=== PATIENT | female | born 1930 | race African-American/Black ===

== ENCOUNTER 2017-04-29 11:08 | Inpatient (IN) | payer OTHER ==
[~2017-04-29] VITALS: Ht 142.2 cm; Wt 40.7 kg
[2017-04-29] MEDS ORDERED: SODIUM CHLORIDE 0.9% 1L BAG IV* STA (12:09)
[2017-04-29] MEDS ORDERED: ONDANSETRON 4 MG INJ IV STA (12:09)
[2017-04-29] MEDS ORDERED: morphine 2 MG INJ IV STA (12:09)
[2017-04-29] MEDS ORDERED: PIPER-TAZO 3.375 GM IV (PMX) 50 ML IVPB STA (12:09)
--- NOTE | 2017-04-29 12:30 | RADRPT ---
PROCEDURE: Chest x-ray CLINICAL INDICATION: Shortness of breath TECHNIQUE: Chest single view COMPARISON: None FINDINGS: There post sternotomy changes. Percutaneous aortic valve is in place. Heart is normal in size. There is mild atherosclerotic aortic calcification. The pulmonary vessels are normal in caliber. The miranda gs are clear. The costophrenic angles are sharp. The visualized bony thorax is unremarkable. IMPRESSION: No acute cardiopulmonary disease. Mild atherosclerotic aortic calcification Status post CABG and percutaneous aortic valve Osteopenia RPTAT: HH .José Miguel Interiano MD, MD Date Time Electronically viewed and signed by .José Miguel Interiano MD, on 04/29/2017 12:30 .W/
[2017-04-29 12:56] LABS: ABNORMAL IP MESSAGE 1; BASOPHILS % 0.2 % (0.0-2.0); EOSINOPHILS % 0.1 % (0.0-7.0); HEMATOCRIT 27.5 % (37.0-47.0); HEMOGLOBIN 9.4 g/dl (12.0-16.0); LYMPHOCYTES # 0.5 10^3/ul (0.8-2.9); LYMPHOCYTES % 2.6 % (15.0-51.0); MEAN CORPUSCULAR HEMOGLOBIN 34.3 pg (29.0-33.0); MEAN CORPUSCULAR HGB CONC 34.2 g/dl (32.0-37.0); MEAN CORPUSCULAR VOLUME 100.4 fl (82.0-101.0); MEAN PLATELET VOLUME 10.8 fl (7.4-10.4); MONOCYTE # 0.6 10^3/ul (0.3-0.9); MONOCYTES % 3.6 % (0.0-11.0); NEUTROPHIL # 16.5 10^3/ul (1.6-7.5); NEUTROPHILS % 92.5 % (39.0-77.0); PLATELET COUNT 213 10^3/UL (140-415); RED BLOOD COUNT 2.74 10^6/ul (4.20-5.40); RED CELL DISTRIBUTION WIDTH 17.6 % (11.5-14.5); WHITE BLOOD COUNT 17.9 10^3/ul (4.8-10.8)
[2017-04-29 13:16] LABS: INR 1.01; PROTIME 13.4 Sec (11.9-14.9)
[2017-04-29 13:17] LABS: PARTIAL THROMBOPLASTIN TIME 30.8 Sec (25.0-35.0)
[2017-04-29] MEDS ORDERED: VANCOMYCIN 1 GM (PMX) 250 ML IVPB SCH (13:30)
[2017-04-29 13:55] LABS: ADD UMIC YES; UR ASCORBIC ACID NEGATIVE (NEGATIVE); UR BACTERIA FEW /HPF (NONE SEEN); UR BILIRUBIN (Dip) NEGATIVE (NEGATIVE); UR BLOOD (Dip) 2+ mg/dL (NEGATIVE); UR CLARITY SLIGHTLY CLOUDY (CLEAR); UR COLOR YELLOW (YELLOW); UR GLUCOSE (Dip) NEGATIVE (NEGATIVE); UR KETONES (Dip) NEGATIVE (NEGATIVE); UR LEUKOCYTE ESTERASE (Dip) 2+ Leu/ul (NEGATIVE); UR NITRITE (Dip) POSITIVE (NEGATIVE); UR RBC 1 /HPF (0-5); UR SPECIFIC GRAVITY (Dip) 1.009 (1.003-1.030); UR TOTAL PROTEIN (Dip) NEGATIVE (NEGATIVE); UR UROBILINOGEN (Dip) NEGATIVE (NEGATIVE)
[2017-04-29 14:10] LABS: ALBUMIN 3.3 g/dl (3.3-4.9); CREATININE 1.34 mg/dl (0.44-1.00); POTASSIUM 3.6 mmol/L (3.5-5.1); TOTAL PROTEIN 6.6 g/dl (6.1-8.1)
[2017-04-29 14:29] LABS: TROPONIN-I 0.188 ng/ml (0.00-0.12)
[2017-04-29] MEDS ORDERED: BISACODYL (EC) 5 MG TAB PO PRN (15:00)
[2017-04-29] MEDS ORDERED: DOCUSATE SODIUM 100 MG CAP PO PRN (15:00)
[2017-04-29] MEDS ORDERED: MAGNESIUM HYDROXIDE 30ML CUP PO PRN (15:00)
[2017-04-29] MEDS ORDERED: NACL 0.9% 3 ML SYG IV SCH (15:00)
[2017-04-29] MEDS ORDERED: ONDANSETRON 4 MG INJ IV PRN ×2 (15:00)
[2017-04-29] MEDS ORDERED: ACETAMINOPHEN 650 MG SUPP PR PRN (15:00)
[2017-04-29] MEDS ORDERED: ACETAMINOPHEN 325 MG TAB PO PRN (15:00)
[2017-04-29] MEDS ORDERED: ALEN70TA30 PO (15:12)
[2017-04-29] MEDS ORDERED: ACET1TAB40 PO (15:12)
[2017-04-29] MEDS ORDERED: CALC500T91 PO (15:13)
[2017-04-29] MEDS ORDERED: LATA2.5D2 BOTH EYES (15:14)
[2017-04-29] MEDS ORDERED: LEVE750T70 PO (15:14)
[2017-04-29] MEDS ORDERED: LISI2.5T59 PO (15:15)
[2017-04-29] MEDS ORDERED: PANT40TA4 PO (15:16)
[2017-04-29] MEDS ORDERED: METO-335 PO (15:16)
[2017-04-29] MEDS ORDERED: SIMV10TA PO (15:16)
--- NOTE | 2017-04-29 15:17 | ERD ---
ER Documentation Chief Complaint Chief Complaint Sent from for abnormal labs HPI 76-year-old female was brought in by her daughter for having a fever at home. She had surgery on her right femur at an outside hospital almost 2 weeks ago. She called 911 because the patient had a fever and she has discharge paperwork saying that she should go to the emergency room if she has a fever. This is the hospital the ambulance brought him to. She does have some substernal nonradiating chest pain. Denies shortness of breath. Has a history of CABG and artificial cardiac valve. She also complains of generalized crampy abdominal pain. Initially had constipation after her surgery but after she took a laxative she had diarrhea. She still has some diarrhea which is watery. She has not been on any antibiotics throughout her surgery has not had antibiotics that she knows of this year. ROS All systems reviewed and are negative except as per history of present illness. Allergies Allergies: Coded Allergies: phenytoin (Verified Allergy, Intermediate, Rash, 04/29/17) PMhx/Soc History of Surgery: Yes (HIP, CABG, CRANIO, HEART VALVE REPLACEMENT) Hx Neurological Disorder: Yes (SEIZURE) Hx Cardiac Disorders: Yes (HTN) Hx Miscellaneous Medical Probl: Yes (HIGH ROBERTH) Hx Alcohol Use: No Hx Substance Use: No Hx Tobacco Use: No Smoking Status: Never smoker Physical Exam Vitals Vital Signs Date Time Temp Pulse Resp B/P Pulse Ox O2 Delivery O2 Flow Rate FiO2 04/29/17 13:11 Nasal Cannula 2 04/29/17 11:11 101.2 121 20 117/50 94 Physical Exam Const: [] Mild distress, appears uncomfortable Head: Atraumatic Eyes: Normal Conjunctiva ENT: Normal External Ears, Nose and Mouth. Neck: Full range of motion..~ No meningismus. Resp: Clear to auscultation bilaterally Cardio: Regular tachycardia no murmurs Abd: Soft, I will generalized abdominal tenderness without guarding or rebound, non distended. Normal bowel sounds Skin: No petechiae or rashes Back: No midline or flank tenderness Ext: No cyanosis, or edema, well-healed incision sites, distal pulses intact all 4 extremities Neur: Awake and alert and oriented 3, no focal deficits Psych: Normal Mood and Affect Result Diagram: 04/29/17 1240 04/29/17 1330 Results 24 hrs Laboratory Tests Test 04/29/17 12:40 04/29/17 13:07 04/29/17 13:30 White Blood Count 17.910^3/ul Red Blood Count 2.7410^6/ul Hemoglobin 9.4g/dl Hematocrit 27.5% Mean Corpuscular Volume 100.4fl Mean Corpuscular Hemoglobin 34.3pg Mean Corpuscular Hemoglobin Concent 34.2g/dl Red Cell Distribution Width 17.6% Platelet Count 84087^3/UL Mean Platelet Volume 10.8fl Neutrophils % 92.5% Lymphocytes % 2.6% Monocytes % 3.6% Eosinophils % 0.1% Basophils % 0.2% Nucleated Red Blood Cells % 0.0/100WBC Neutrophils # 16.510^3/ul Lymphocytes # 0.510^3/ul Monocytes # 0.610^3/ul Eosinophils # 0.010^3/ul Basophils # 0.010^3/ul Nucleated Red Blood Cells # 0.010^3/ul Prothrombin Time 13.4Sec Prothrombin Time Ratio 1.0 INR International Normalized Ratio 1.01 Activated Partial Thromboplast Time 30.8Sec Urine Color YELLOW Urine Clarity SLIGHTLY CLOUDY Urine pH 5.0 Urine Specific [place] 1.009 Urine Ketones NEGATIVEmg/dL Urine Nitrite POSITIVEmg/dL Urine Bilirubin NEGATIVEmg/dL Urine Urobilinogen NEGATIVEmg/dL Urine Leukocyte Esterase 2+Angelina/ul Urine Microscopic RBC 1/HPF Urine Microscopic WBC 95/HPF Urine Bacteria FEW/HPF Urine Hemoglobin 2+mg/dL Urine Glucose NEGATIVEmg/dL Urine Total Protein NEGATIVEmg/dl Sodium Level 131mmol/L Potassium Level 3.6mmol/L Chloride Level 97mmol/L Carbon Dioxide Level 26mmol/L Anion Gap 12 Blood Urea Nitrogen 26mg/dl Creatinine 1.34mg/dl Glucose Level 109mg/dl Lactic Acid Level 1.6mmol/L Calcium Level 9.0mg/dl Total Bilirubin 1.0mg/dl Direct Bilirubin 0.00mg/dl Indirect Bilirubin 1.0mg/dl Aspartate Amino Transf (AST/SGOT) 30IU/L Alanine Aminotransferase (ALT/SGPT) 33IU/L Alkaline Phosphatase 115IU/L Troponin I 0.188ng/ml Total Protein 6.6g/dl Albumin 3.3g/dl Globulin 3.30g/dl Albumin/Globulin Ratio 1.00 Current Medications Medications (Trade) Dose Ordered Sig/Ronald Route PRN Reason Start Time Stop Time Status Last Admin Dose Admin Sodium Chloride 1710 ml 1,710 ml BOLUS OVER 2 HOURS STAT IV* 04/29/17 12:09 04/29/17 12:12 DC 04/29/17 13:31 Piperacillin Sod/ Tazobactam Sod (Zosyn 3.375gm/ 50 ml (Pmx)) 50 ml @ 100 mls/hr ONCE STAT IVPB 04/29/17 12:09 04/29/17 12:38 DC 04/29/17 13:31 Ondansetron HCl (Zofran Inj) 4 mg ONCE STAT IV 04/29/17 12:09 04/29/17 12:12 DC 04/29/17 13:30 Morphine Sulfate 2 mg 2 mg ONCE STAT IV 04/29/17 12:09 04/29/17 12:12 DC 04/29/17 13:31 Vancomycin HCl (Vancocin) 250 ml @ 125 mls/hr ONCE IVPB 04/29/17 13:30 04/29/17 15:29 Ondansetron HCl (Zofran Inj) 4 mg ER BRIDGE PRN IV NAUSEA AND/OR VOMITING 04/29/17 15:00 04/30/17 14:59 Acetaminophen 650 mg 650 mg ER BRIDGE PRN PO MILD PAIN/FEVER 04/29/17 15:00 04/30/17 14:59 Sodium Chloride (NS) 1,000 ml @ 50 mls/hr Q20H IV 04/29/17 14:59 UNV IV Flush (NS 3 ml) 3 ml PER PROTOCOL IV 04/29/17 15:00 UNV Ondansetron HCl (Zofran Inj) 4 mg Q6H PRN IV NAUSEA AND/OR VOMITING 04/29/17 15:00 UNV Acetaminophen (Tylenol Tab) 650 mg Q6H PRN PO PAIN LEVEL 1-3 OR FEVER 04/29/17 15:00 UNV Acetaminophen (Tylenol Supp) 650 mg Q6H PRN [place] PAIN LEVEL 1-3 OR FEVER 04/29/17 15:00 UNV Docusate Sodium (Colace) 100 mg Q12H PRN PO CONSTIPATION 04/29/17 15:00 UNV Magnesium Hydroxide (Milk Of Mag) 30 ml DAILY PRN PO CONSTIPATION 04/29/17 15:00 UNV Bisacodyl (Dulcolax) 5 mg DAILY PRN PO CONSTIPATION 04/29/17 15:00 UNV Pantoprazole 40 mg 40 mg DAILY@06 IV 04/30/17 06:00 UNV Ceftriaxone Sodium (Rocephin) 50 ml @ 100 mls/hr DAILY IVPB 04/30/17 09:00 UNV Procedures/MDM UTI with sepsis as a postop infection. She does have elevated troponin as well with a history of CABG as well as valve replacement of unknown valve. No ischemic EKG changes. She will need very close monitoring as this is a sniffing infection causing significant tachycardia and strain on the heart. She was given vancomycin and Zosyn for healthcare acquired infection. She given 30 cc/kg IV fluid. Also given Tylenol for fever. She remained persistently tachycardic. . Chest pain diminished without treatment other than 325 mg aspirin. She also given Zofran and Toradol which helped the headache and body aches. Feeling improved condition in the emergency room. She is being admitted to Dr. Cdoy, who came and saw the patient in the emergency room. Being admitted to telemetry for close monitoring. EKG interpretation: Sinus tachycardia rate of 109, normal axis, no ST or T-wave changes concerning for acute ischemia, normal intervals. environmental monitoring technician interpretation: Sinus tachycardia without other arrhythmia Chest x-ray interpretation: I see no acute process, I see no infiltrates, no pulmonary edema, no pneumothorax, no fractures Critical care time 34 minutes: This includes treatment of sepsis with chest pain in a patient with multiple cardiac risk factors, treatment of unstable vital signs, careful fluid administration, multiple visits patient's bedside to reassess status, close monitoring, review of chart, discussion with patient and admitting doctor. This does not include any billable procedures Departure Diagnosis: Primary Impression: Sepsis secondary to UTI Additional Impressions: Chest pain Renal insufficiency Elevated troponin Condition: Serious VALDEZ DOUGLAS DO Apr 29, 2017 15:17
--- NOTE | 2017-04-29 15:27 | QN ---
Documentation Comment [id number] IVAN LANDAVERDE MD Apr 29, 2017 15:27
[2017-04-29] MEDS ORDERED: ACETAMINOPHEN 325 MG TAB PO ONE (15:30)
[2017-04-29] MEDS ORDERED: SOD CHLORIDE 0.9% 1,000 ML IV ONE (15:30)
--- NOTE | 2017-04-29 16:35 | RADRPT ---
Echocardiogram Report Patient Name: MARILOU MORRISON Gender: Female Date: 1930 Study Date: 29-Apr-2017 Mannequin Decorator: Lisa [facility] Location: [facility] Ref. Physician: IVAN LANDAVERDE Quality: Adequate Procedures: Transthoracic echocardiogram with complete 2D, M-Mode, and doppler examination. Indications: CAD. 2D/M Mode Doppler Measurement Value Normal Ranges Measurement Value Normal Ranges LVIDd 2D 3.3 3.5 - 5.6 cm ANTONELLA Vmax 1.0 cm2 LVIDs 2D 2.3 2.1 - 4.1 cm ANTONELLA VTI 1.0 cm2 FS 2D 31.4 % AV Mean Miles 1.6 m/sec LVPWd 2D 1.3 0.6 - 1.1 cm AV Mean PG 12.0 mmHg IVSd 2D 1.2 0.6 - 1.1 cm AV Peak Miles 2.3 m/sec IVS/LVPW 2D 1.0 AV Peak PG 20.0 mmHg AoR Diam 2D 2.1 2.0 - 3.7 cm AV VTI 42.0 cm LA/Ao 2D 2 0 - 1 LVOT Mean Miles 0.6 m/sec EDV 2D 37.3 cm3 LVOT Mean PG 2.0 mmHg ESV 2D 12.0 cm3 LVOT Peak Miles 1.0 m/sec LA Dimen 2D 3.4 2.3 - 4.0 cm LVOT Peak PG 4.0 mmHg LVOT Diam 1.7 cm LVOT VTI 19.2 cm LVOT Area 2.3 cm2 MV E Peak Miles 1.3 m/sec MV A Peak Miles 1.4 m/sec MV E/A 1.0 MV Decel Time 180 msec MV E/A 1.0 TR Peak Miles 4.0 m/sec TR Peak PG 64.0 mmHg RVSP 67.0 mmHg Findings Left Ventricle: Normal left ventricular systolic function. Normal left ventricular cavity size. Mild concentric left ventricular hypertrophy. Ejection fraction is visually estimated at 65 %. Tissue Doppler/Mitral Doppler indices are consistent with pseudonormalization with mildly elevated left atrial pressure (Stage II diastolic dysfunction). Right Ventricle: Normal right ventricular size. Normal right ventricular systolic function. Left Atrium: There is moderate enlargement of left atrium. Right Atrium: There is mild enlargement of right atrium. Mitral Valve: Mild mitral leaflet calcification. Mild mitral annular calcification. Mild mitral valve regurgitation. Aortic Valve: Aortic Valve Bio Prosthesis is well seated. Aortic valve Max velocity 2.26 m/sec. Max PG 20.00 mmHg. Mean PG 12.00 mmHg. Tricuspid Valve: Normal appearance of the tricuspid valve. Estimated peak PA systolic pressure 51 mmHg. There is moderate tricuspid regurgitation. Pulmonic Valve: Pulmonic valve not well visualized. There is trace pulmonic regurgitation. Pericardium: Normal pericardium with no significant pericardial effusion. Aorta: Normal aortic root. IVC: Normal size and normal respiratory collapse consistent with normal right atrial pressure. Conclusions 1.The left ventricle is normal in size and systolic function. 2.Estimated left ventricular ejection fraction of 65%. 3.Mild concentric left ventricular hypertrophy. Grade 2 diastolic dysfunction. 4.Aortic valve bioprosthesis with normal function. 5.Pulmonary hypertension with estimated RVSP of 51 mmHg. Electronically Signed By: Rocco Tiwari 29-Apr-2017 16:34:23 -0800 Patient Name: MARILOU MORRISON Study Date: 29-Apr-2017 [id number]
--- NOTE | 2017-04-29 17:26 | HP ---
DATE OF ADMISSION: 04/29/2017 HISTORY OF PRESENT ILLNESS: The patient is an elderly female with history of TAVR, history of seizure disorder, history of femur fracture and repair, recently discharged from _[facility] Hospital, presented with temperature 101.2, pulse 121, blood pressure 117/50, and respirations 20. The patient has been admitted for systemic inflammatory response syndrome, possible UTI. LABORATORY DATA: The patient's sodium 131, potassium 3.6. Troponin 0.188. Patient denies any chest pain, palpitations. Leuk esterase is positive in the urine. WBC 17.9, hematocrit 27.4, platelet count of 213. Chest x-ray done shows no acute cardiopulmonary disease, mild atherosclerotic aortic calcification, status post CABG and percutaneous aortic valve and osteopenia. PAST MEDICAL HISTORY: Positive for TAVR, history of seizure disorder, history of femur surgery, history of femur fracture repair, history of GI bleed and clipping in July of this year. ALLERGY HISTORY: TO DILANTIN. SOCIAL HISTORY: Negative. MEDICATIONS AT HOME: Not available. REVIEW OF SYSTEMS: HEENT: Unremarkable. RESPIRATORY: Unremarkable. CARDIOVASCULAR: neg. ABDOMEN: dyspepsia+. GENITOURINARY: Some dysuria. EXTREMITIES: Unremarkable. MUSCULOSKELETAL: Unremarkable. PHYSICAL EXAMINATION: GENERAL: The patient is awake, alert, not in any acute respiratory distress. VITAL SIGNS: Stable. HEAD: Atraumatic, normocephalic. Pupils equal, reactive to light. NECK: Supple. No JVD. LUNGS: Clear to auscultation and percussion. ABDOMEN: Soft, nontender. Bowel sounds present. No palpable mass. EXTREMITIES: No cyanosis, clubbing, or edema. CENTRAL NERVOUS SYSTEM: The patient is awake, alert. No focal deficit. SKIN: The patient has a CABG scar noted in the chest. IMPRESSION: 1. Systemic inflammatory response syndrome. The patient has a urinary tract infection, a positive troponin, hyponatremia, acute kidney injury, with possible underlying chronic kidney disease, leukocytosis, history of gastrointestinal bleed, history of coronary artery bypass graft, history of seizure disorder. PLAN: At this point is to give this patient cardiac diet. Troponin will be sent. The patient cannot take aspirin because of history of GI bleed. Cardiology consultation with Dr. Toro has been obtained. IV fluid, antibiotic, PPI, SCDs to the legs. Orders were done. Dictated By: IVAN SMITH/REYNALDO Conf#: [id number] DID#: [id number] MTDD
[2017-04-29] MEDS: CEFTRIAXONE 1 GM/50 ML (PMX) 50 ML IVPB SCH (17:47)
[2017-04-29] MEDS: SOD CHLORIDE 0.9% 1,000 ML IV SCH (18:37)
[2017-04-29 19:47] LABS: CK-MB 0.74 ng/ml (0.0-2.4)
[2017-04-29 19:48] LABS: TROPONIN-I 0.242 ng/ml (0.00-0.12)
[2017-04-29 20:56] VITALS: TEMP 98.6
[2017-04-29 21:15] VITALS: PULSE 87
[2017-04-29 22:30] VITALS: BMI 20.1
[2017-04-29 23:35] LABS: CK-MB 1.38 ng/ml (0.0-2.4)
[2017-04-29 23:41] LABS: TROPONIN-I 0.28 ng/ml (0.00-0.12)
[2017-04-30] VITALS (10 sets, daily range): BP systolic 81–114; BP diastolic 50–56; PULSE 89–99; RESP 17–20; Ht 142.2 cm; Wt 40.7 kg
[2017-04-30] MEDS: LEVETIRACETAM IV 750 MG in DEXTROSE 5% 100 ML IVPB SCH ×3 (01:29→22:13)
[2017-04-30] MEDS: FAMOTIDINE 20 MG INJ IV SCH (08:31)
[2017-04-30] MEDS: SOD CHLORIDE 0.9% 1,000 ML IV SCH (10:44)
[2017-04-30] MEDS: CLOPIDOGREL 75 MG TAB PO SCH (10:51)
[2017-04-30] MEDS: ISOSORBIDE MONONITRATE(SR)30 MG TAB PO SCH (10:52)
[2017-04-30] MEDS ORDERED: SOD CHLORIDE 0.9% 500 ML IV ONE (11:00)
--- NOTE | 2017-04-30 12:00 | CONS ---
DATE OF ADMISSION: 04/29/2017 DATE OF CONSULTATION: 04/30/2017 Thank you, Dr. Landaverde, for cardiology consultation. REASON FOR CONSULTATION: Chest pain. HISTORY OF PRESENT ILLNESS: Patient is an 86-year-old female who comes in with low blood pressure. She also complains of chest pain localized to the epigastric region and dizziness. Denies any shor tness of breath, palpitations, or syncope. She has a history of having a TAVR which was done in at [facility] and bypass surgery done in 2007. She denies any nausea or vomiting, but complains of diar suad, no abdominal pain. She had a temperature of 101.2. PAST MEDICAL HISTORY: 1. Significant for coronary artery disease, status post bypass surgery in 2007 TAVR. 2. TAVR 2015. 3. Hypertension. 4. Dyslipidemia. 5. Seizures. 6. GERD. 7. Anemia. 8. History of GI bleed. PAST SURGICAL HISTORY: Significant for ORIF of the femur. SOCIAL HISTORY: No smoking, alcohol or recreational drug. ALLERGIES: DILANTIN. CURRENT MEDICATIONS: 1. Keppra. 2. Pepcid. 3. Ceftriaxone. REVIEW OF SYSTEMS: Unremarkable except that mentioned in the HPI. PHYSICAL EXAMINATION: VITAL SIGNS: Temperature is 99.6, heart rate of 98, blood pressure 88/52 mmHg, breathing at 17. GENERAL: The patient awake, alert, oriented, no apparent distress. NECK: No JVD or carotid bruit. CARDIOVASCULAR: Regular rate and rhythm, no murmur, rub or gallop. LUNGS: Clear to auscultation. ABDOMEN: Soft. Bowel sounds are present. There is no organomegaly. EXTREMITIES: No pedal edema. Review of 12 lead EKG shows sinus tachycardia with ventricular rate of 109 beats per minute, normal MD, normal QRS and normal QT interval with no acute ST-T wave changes. Chest x-ray shows no congestion or infiltrate with a percutaneous aortic valve in position. LABORATORY DATA: WBC 17.9, hemoglobin 9.5, hematocrit 27.4 with a platelet of 213. Troponin first set is 0.18, second set 0.2, third was 0.28. Sodium 131, potassium 3.6, chloride 97, CO2 26, BUN 26 , creatinine 1.34. ASSESSMENT AND PLAN: This is an 86-year-old female with: 1. Chest pain. 2. Acute coronary syndrome. 3. Coronary artery disease status post bypass surgery. 4. Aortic stenosis, status post TAVR. 5. Hypertension. 6. Dyslipidemia. 7. Anemia. 8. GERD. 9. Hypertension. Review of 12 lead EKG shows sinus tachycardia with no acute ST-T wave changes. She has elevated tro ponins. RECOMMENDATIONS: 1. Bolus of 500 mL of normal saline. 2. Started on Imdur 3. Echocardiogram to assess for vegetation. 4. Blood culture, urine culture. 5. BNP, TSH, ESR. 6. Hold all antihypertensives. 7. Continue empiric antibiotics. 8. Started on Protonix by mouth two times a day. 9. Further recommendations after review of the echocardiogram. Dictated By: MIRIAM BRUCE MD SR/NTS Conf#: [id number] DID#: [id number] CC: IVAN LANDAVERDE MD;*EndCC*
[2017-04-30 12:38] LABS: THYROID STIMULATING HORMONE 0.19 MIU/L (0.465-4.680)
--- NOTE | 2017-04-30 13:52 | PN ---
Date/Time of Note Date/Time of Note DATE: 04/30/17 TIME: 13:49 Assessment/Plan VTE Prophylaxis VTE Prophylaxis Intervention: SCD's Lines/Catheters IV C[facility]ter Type ([facility] Peripheral IV Urinary Cath still in place: No Assessment/Plan Chief Complaint/Hosp Course 1. Systemic inflammatory response syndrome. 2. S/p right hip arthroplasty at [facility] 3. urinary tract infection, 4.Positive troponin, 5. Hyponatremia, 6. acute kidney injury, with possible underlying chronic kidney disease, 7. history of gastrointestinal bleed 8. history of coronary artery bypass graft 9. history of seizure disorder. 10. Status post percutaneous aortic valve placement 11.Anemia 12. CHF Problems: Subjective 24 Hr Interval Summary Constitutional: chills Skin: bruising Exam/Review of Systems Vital Signs Vitals Vital Signs Date Time Temp Pulse Resp B/P Pulse Ox O2 Delivery O2 Flow Rate FiO2 04/30/17 12:00 98 04/30/17 11:44 98.3 19 92/53 100 04/30/17 00:00 Nasal Cannula 2.0 Intake and Output 04/29/17 04/29/17 04/30/17 15:00 23:00 07:00 Intake Total 50 ml 300 ml Balance 50 ml 300 ml Exam Constitutional: alert, oriented Neck: supple Cardiovascular: other (tachycardia), regular rate and rhythm Musculoskeletal: swelling (right hip with steril strips) Neurological: CONTINUING EDUCATION SPECIALIST II-XII intact Results Result Diagram: 04/29/17 1240 04/29/17 1330 Results 24 hrs Laboratory Tests Test 04/29/17 19:00 04/29/17 22:51 04/30/17 11:29 Lactic Acid Level 1.6 1.5 Creatine Kinase 91 226 H Creatine Kinase Index 0.8 0.6 Creatinine Kinase MB (Mass) 0.74 1.38 Troponin I 0.242 *H 0.280 *H Erythrocyte Sedimentation Rate 88 H B-Type Natriuretic Peptide 7290 H Thyroid Stimulating Hormone (TSH) 0.190 L Medications Medications Current Medications Sodium Chloride (NS) 1,000 ml @ 50 mls/hr Q20H IV Last administered on t 10:44; Admin Dose 50 MLS/HR; Start 04/29/17 at 14:59 Ondansetron HCl (Zofran Inj) 4 mg Q6H PRN IV NAUSEA AND/OR VOMITING; Start 04/29/17 at 15:00 Acetaminophen (Tylenol Tab) 650 mg Q6H PRN PO PAIN LEVEL 1-3 OR FEVER; Start 04/29/17 at 15:00 Acetaminophen (Tylenol Supp) 650 mg Q6H PRN [place] PAIN LEVEL 1-3 OR FEVER; Start 04/29/17 at 15:00 Docusate Sodium (Colace) 100 mg Q12H PRN PO CONSTIPATION; Start 04/29/17 at 15: 00 Magnesium Hydroxide (Milk Of Mag) 30 ml DAILY PRN PO CONSTIPATION; Start at 15:00 Bisacodyl (Dulcolax) 5 mg DAILY PRN PO CONSTIPATION; Start 04/29/17 at 15:00 Famotidine 20 mg 20 mg Q24H IV Last administered on 04/30/17 08:31; Admin Dose 20 MG; Start 04/30/17 at 09:00 Ceftriaxone Sodium 50 ml @ 100 mls/hr Q24H IVPB Last administered on 17:47; Admin Dose 100 MLS/HR; Start 04/29/17 at 16:00 Levetiracetam/ Dextrose (Keppra Iv/D5W) 107.5 ml @ 430 mls/hr Q12 IVPB Last administered on 04/30/17 10:43; Admin Dose 430 MLS/HR; Start 04/29/17 at 21:00 Isosorbide Mononitrate (Imdur) 30 mg DAILY PO Last administered on 04/30/17 10 :52; Admin Dose 30 MG; Start 04/30/17 at 11:00 Clopidogrel Bisulfate (plaVIX) 75 mg DAILY PO Last administered on 04/30/17 10 :51; Admin Dose 75 MG; Start 04/30/17 at 11:00 TRAVIS SCHWARZ Apr 30, 2017 13:52
[2017-04-30] MEDS: CEFTRIAXONE 1 GM/50 ML (PMX) 50 ML IVPB SCH (16:40)
[2017-04-30] MEDS: ACETAMINOPHEN 325 MG TAB PO PRN (21:14)
[2017-05-01] VITALS (12 sets, daily range): BP systolic 97–133; BP diastolic 52–74; PULSE 67–101; RESP 16–20
[2017-05-01 06:40] LABS: ABNORMAL IP MESSAGE 1; MEAN CORPUSCULAR HEMOGLOBIN 33.7 pg (29.0-33.0); MEAN CORPUSCULAR HGB CONC 32.4 g/dl (32.0-37.0); MEAN PLATELET VOLUME 10.1 fl (7.4-10.4); PLATELET COUNT 161 10^3/UL (140-415); RED BLOOD COUNT 2.02 10^6/ul (4.20-5.40); RED CELL DISTRIBUTION WIDTH 17.3 % (11.5-14.5); WHITE BLOOD COUNT 9.4 10^3/ul (4.8-10.8)
[2017-05-01 06:51] LABS: HEMOGLOBIN 6.8 g/dl (12.0-16.0); POSITIVE DIFF @See below
[2017-05-01] MEDS: SOD CHLORIDE 0.9% 1,000 ML IV SCH (06:59)
[2017-05-01 07:15] LABS: CALCIUM 7.8 mg/dl (8.4-10.2); POTASSIUM 3.4 mmol/L (3.5-5.1)
[2017-05-01] MEDS: ISOSORBIDE MONONITRATE(SR)30 MG TAB PO SCH (08:44)
[2017-05-01] MEDS: FAMOTIDINE 20 MG INJ IV SCH (08:44)
[2017-05-01] MEDS: CLOPIDOGREL 75 MG TAB PO SCH (08:44)
[2017-05-01 09:33] LABS: HEMATOCRIT 21.9 % (37.0-47.0); HEMOGLOBIN 7.1 g/dl (12.0-16.0); MEAN CORPUSCULAR HEMOGLOBIN 33.6 pg (29.0-33.0); MEAN CORPUSCULAR HGB CONC 32.4 g/dl (32.0-37.0); MEAN CORPUSCULAR VOLUME 103.8 fl (82.0-101.0); MEAN PLATELET VOLUME 9.9 fl (7.4-10.4); PLATELET COUNT 160 10^3/UL (140-415); RED BLOOD COUNT 2.11 10^6/ul (4.20-5.40); RED CELL DISTRIBUTION WIDTH 17.4 % (11.5-14.5); WHITE BLOOD COUNT 8.9 10^3/ul (4.8-10.8)
[2017-05-01 09:36] LABS: POSITIVE DIFF @See below
[2017-05-01 10:01] LABS: ANISOCYTOSIS 1+ (0-0); BASOPHILS % (M) 2 % (0-2); EOSINOPHILS % (M) 1 % (0-7); MONOCYTES % (M) 11 % (0-11); PLATELET ESTIMATE NORMAL; POLYCHROMASIA 2+ (0-0)
[2017-05-01] MEDS: LEVETIRACETAM IV 750 MG in DEXTROSE 5% 100 ML IVPB SCH ×2 (10:11→20:28)
--- NOTE | 2017-05-01 10:12 | CONS ---
Date/Time of Note Date/Time of Note DATE: 05/01/17 TIME: 10:07 Assessment/Plan Assessment/Plan Additional Assessment/Plan ASSESSMENT AND PLAN: This is an 86-year-old female with: 1. Chest pain. 2. Acute coronary syndrome. 3. Coronary artery disease status post bypass surgery. 4. Aortic stenosis, status post TAVR. 5. Hypertension. 6. Dyslipidemia. 7. Anemia. 8. GERD. 9. Hypertension. 10 GNR Bacteremia 11. GNR Urosepsis Review of 12 lead EKG shows sinus tachycardia with no acute ST-T wave changes. She has elevated troponins. Echo is pending to r/o vegetation and assess for segmental wall motion abnormality RECOMMENDATIONS: Continue Imdur Continue Plavix Hold all antihypertensives. Continue empiric antibiotics. Continue Protonix Awaiting echo Consultation Date/Type/Reason Admit Date/Time Apr 29, 2017 at 14:49 Initial Consult Date Exam/Review of Systems Vital Signs Vitals Vital Signs Date Time Temp Pulse Resp B/P Pulse Ox O2 Delivery O2 Flow Rate FiO2 05/01/17 08:09 98.2 91 18 103/57 100 04/30/17 20:00 Nasal Cannula 2.0 Intake and Output 04/30/17 04/30/17 05/01/17 15:00 23:00 07:00 Intake Total 1207.5 ml 800 ml Balance 1207.5 ml 800 ml Exam Constitutional: alert, oriented Head: atraumatic, normocephalic Neck: non-tender, supple Respiratory: clear to auscultation Cardiovascular: regular rate and rhythm (no m/r/g) Gastrointestinal: nl liver, spleen, non-tender, soft Extremities: normal pulses Results Result Diagram: 05/01/17 0920 05/01/17 0611 Results 24 hrs Laboratory Tests Test 04/30/17 11:29 05/01/17 06:11 05/01/17 09:20 Erythrocyte Sedimentation Rate 88 H B-Type Natriuretic Peptide 7290 H Thyroid Stimulating Hormone (TSH) 0.190 L White Blood Count 9.4 # 8.9 Red Blood Count 2.02 #L 2.11 L Hemoglobin 6.8 #*L 7.1 L Hematocrit 21.0 #L 21.9 L Mean Corpuscular Volume 104.0 H 103.8 H Mean Corpuscular Hemoglobin 33.7 H 33.6 H Mean Corpuscular Hemoglobin Concent 32.4 32.4 Red Cell Distribution Width 17.3 H 17.4 H Platelet Count 161 # 160 Mean Platelet Volume 10.1 9.9 Neutrophils % Segmented Neutrophils % (Manual) 67 Band Neutrophils % (Manual) 8 H Lymphocytes % Lymphocytes % (Manual) 11 L Monocytes % Monocytes % (Manual) 11 Eosinophils % Eosinophils % (Manual) 1 Basophils % Basophils % (Manual) 2 Nucleated Red Blood Cells % 0.0 0.0 Neutrophils # Neutrophils # (Manual) 6.4 Band Neutrophils # 0.7 H Absolute Lymphocytes (Manual) 1.0 Lymphocytes # Monocytes # Absolute Monocytes (Manual) 1.0 H Eosinophils # Basophils # Basophils # (Manual) 0.1 H Nucleated Red Blood Cells # Platelet Estimate NORMAL Polychromasia 2+ Anisocytosis 1+ Macrocytosis 1+ Sodium Level 141 Potassium Level 3.4 L Chloride Level 111 H Carbon Dioxide Level 25 Anion Gap 8 Blood Urea Nitrogen 16 # Creatinine 1.00 Glucose Level 107 Calcium Level 7.8 L Medications Medications Current Medications Sodium Chloride (NS) 1,000 ml @ 50 mls/hr Q20H IV Last administered on 10:44; Admin Dose 50 MLS/HR; Start 04/29/17 at 14:59 Ondansetron HCl (Zofran Inj) 4 mg Q6H PRN IV NAUSEA AND/OR VOMITING; Start 04/29/17 at 15:00 Acetaminophen (Tylenol Tab) 650 mg Q6H PRN PO PAIN LEVEL 1-3 OR FEVER Last administered on 04/30/17 21:14; Admin Dose 650 MG; Start 04/29/17 at 15:00 Acetaminophen (Tylenol Supp) 650 mg Q6H PRN [place] PAIN LEVEL 1-3 OR FEVER; Start 04/29/17 at 15:00 Docusate Sodium (Colace) 100 mg Q12H PRN PO CONSTIPATION; Start 04/29/17 at 15: 00 Magnesium Hydroxide (Milk Of Mag) 30 ml DAILY PRN PO CONSTIPATION; Start at 15:00 Bisacodyl (Dulcolax) 5 mg DAILY PRN PO CONSTIPATION; Start 04/29/17 at 15:00 Famotidine 20 mg 20 mg Q24H IV Last administered on 05/01/17 08:44; Admin Dose 20 MG; Start 04/30/17 at 09:00 Ceftriaxone Sodium 50 ml @ 100 mls/hr Q24H IVPB Last administered on 16:40; Admin Dose 100 MLS/HR; Start 04/29/17 at 16:00 Levetiracetam/ Dextrose (Keppra Iv/D5W) 107.5 ml @ 430 mls/hr Q12 IVPB Last administered on 04/30/17 22:13; Admin Dose 430 MLS/HR; Start 04/29/17 at 21:00 Isosorbide Mononitrate (Imdur) 30 mg DAILY PO Last administered on 05/01/17 08:44; Admin Dose 30 MG; Start 04/30/17 at 11:00 Clopidogrel Bisulfate (plaVIX) 75 mg DAILY PO Last administered on 05/01/17 08:44; Admin Dose 75 MG; Start 04/30/17 at 11:00 MIRIAM BRUCE M.D. May 01, 2017 10:12
[2017-05-01 10:25] LABS: ANISOCYTOSIS 1+ (0-0); EOSINOPHILS % (M) 3 % (0-7); MONOCYTES % (M) 6 % (0-11); PLATELET ESTIMATE NORMAL; POLYCHROMASIA 3+ (0-0)
[2017-05-01] MEDS ORDERED: CALCIUM CARBONATE 500 MG CHEW TAB PO PRN (14:30)
[2017-05-01] MEDS ORDERED: POTASSIUM CHLORIDE 20 MEQ POWDER FOR ORAL SOLN PO ONE (14:30)
--- NOTE | 2017-05-01 14:34 | PN ---
Date/Time of Note Date/Time of Note DATE: 05/01/17 TIME: 14:32 Assessment/Plan VTE Prophylaxis VTE Prophylaxis Intervention: SCD's Lines/Catheters IV [facility] Peripheral IV Urinary Cath still in place: No Assessment/Plan Chief Complaint/Hosp Course 1. Systemic inflammatory response syndrome, better. 2. S/p right hip arthroplasty at [facility] 3. urinary tract infection, 4.Positive troponin, 5. Hyponatremia, 6. acute kidney injury, with possible underlying chronic kidney disease, 7. history of gastrointestinal bleed 8. history of coronary artery bypass graft 9. history of seizure disorder. 10. Status post percutaneous aortic valve placement 11. Anemia 12. CHF Problems: Assessment/Plan 1. Stop Iv fluids 2. Start Pt tomorrow Subjective 24 Hr Interval Summary Constitutional: improved, no complaints Musculoskeletal: bone/joint pain (right kneee) Exam/Review of Systems Vital Signs Vitals Vital Signs Date Time Temp Pulse Resp B/P Pulse Ox O2 Delivery O2 Flow Rate FiO2 05/01/17 12:06 98.0 100 17 107/61 99 04/30/17 20:00 Nasal Cannula 2.0 Intake and Output 04/30/17 04/30/17 05/01/17 14:59 22:59 06:59 Intake Total 1100 ml 907.5 ml Balance 1100 ml 907.5 ml Exam Constitutional: alert, oriented Respiratory: diminished breath sounds Cardiovascular: regular rate and rhythm Gastrointestinal: soft Neurological: [employer] ADMINISTRATOR II-XII intact Results Result Diagram: 05/01/17 0920 05/01/17 0611 Results 24 hrs Laboratory Tests Test 05/01/17 06:11 05/01/17 09:20 05/01/17 12:07 White Blood Count 9.4 # 8.9 Red Blood Count 2.02 #L 2.11 L Hemoglobin 6.8 #*L 7.1 L Hematocrit 21.0 #L 21.9 L Mean Corpuscular Volume 104.0 H 103.8 H Mean Corpuscular Hemoglobin 33.7 H 33.6 H Mean Corpuscular Hemoglobin Concent 32.4 32.4 Red Cell Distribution Width 17.3 H 17.4 H Platelet Count 161 # 160 Mean Platelet Volume 10.1 9.9 Neutrophils % Segmented Neutrophils % (Manual) 67 77 Band Neutrophils % (Manual) 8 H 5 H Lymphocytes % Lymphocytes % (Manual) 11 L 9 L Monocytes % Monocytes % (Manual) 11 6 Eosinophils % Eosinophils % (Manual) 1 3 Basophils % Basophils % (Manual) 2 Nucleated Red Blood Cells % 0.0 0.0 Neutrophils # Neutrophils # (Manual) 6.4 6.9 Band Neutrophils # 0.7 H 0.4 Absolute Lymphocytes (Manual) 1.0 0.8 Lymphocytes # Monocytes # Absolute Monocytes (Manual) 1.0 H 0.5 Eosinophils # Basophils # Basophils # (Manual) 0.1 H Nucleated Red Blood Cells # Platelet Estimate NORMAL NORMAL Polychromasia 2+ 3+ Anisocytosis 1+ 1+ Macrocytosis 1+ 1+ Sodium Level 141 Potassium Level 3.4 L Chloride Level 111 H Carbon Dioxide Level 25 Anion Gap 8 Blood Urea Nitrogen 16 # Creatinine 1.00 Glucose Level 107 Calcium Level 7.8 L Troponin I 0.067 Medications Medications Current Medications Sodium Chloride (NS) 1,000 ml @ 50 mls/hr Q20H IV Last administered on 10:44; Admin Dose 50 MLS/HR; Start 04/29/17 at 14:59 Ondansetron HCl (Zofran Inj) 4 mg Q6H PRN IV NAUSEA AND/OR VOMITING; Start 04/29/17 at 15:00 Acetaminophen (Tylenol Tab) 650 mg Q6H PRN PO PAIN LEVEL 1-3 OR FEVER Last administered on 04/30/17 21:14; Admin Dose 650 MG; Start 04/29/17 at 15:00 Acetaminophen (Tylenol Supp) 650 mg Q6H PRN [place] PAIN LEVEL 1-3 OR FEVER; Start 04/29/17 at 15:00 Docusate Sodium (Colace) 100 mg Q12H PRN PO CONSTIPATION; Start 04/29/17 at 15: 00 Magnesium Hydroxide (Milk Of Mag) 30 ml DAILY PRN PO CONSTIPATION; Start at 15:00 Bisacodyl (Dulcolax) 5 mg DAILY PRN PO CONSTIPATION; Start 04/29/17 at 15:00 Famotidine 20 mg 20 mg Q24H IV Last administered on 05/01/17 08:44; Admin Dose 20 MG; Start 04/30/17 at 09:00 Ceftriaxone Sodium 50 ml @ 100 mls/hr Q24H IVPB Last administered on 16:40; Admin Dose 100 MLS/HR; Start 04/29/17 at 16:00 Levetiracetam/ Dextrose (Keppra Iv/D5W) 107.5 ml @ 430 mls/hr Q12 IVPB Last administered on 05/01/17 10:11; Admin Dose 430 MLS/HR; Start 04/29/17 at 21:00 Isosorbide Mononitrate (Imdur) 30 mg DAILY PO Last administered on 05/01/17 08:44; Admin Dose 30 MG; Start 04/30/17 at 11:00 Clopidogrel Bisulfate (plaVIX) 75 mg DAILY PO Last administered on 05/01/17 08:44; Admin Dose 75 MG; Start 04/30/17 at 11:00 Potassium Chloride (Potassium Chloride Pwd/Soln) 40 meq ONCE ONCE PO ; Start 05/01/17 at 14:30; Stop 05/01/17 at 14:31; Status TRAVIS CABEZAS May 01, 2017 14:34
[2017-05-01] MEDS: CEFTRIAXONE 1 GM/50 ML (PMX) 50 ML IVPB SCH (17:38)
[2017-05-01] MEDS: ACETAMINOPHEN 325 MG TAB PO PRN (17:39)
[2017-05-02] VITALS (12 sets, daily range): BP systolic 98–123; BP diastolic 57–72; PULSE 77–102; RESP 16–20
[2017-05-02 08:26] LABS: BASOPHILS % 0.4 % (0.0-2.0); EOSINOPHILS # 0.3 10^3/ul (0.0-0.5); EOSINOPHILS % 3.8 % (0.0-7.0); HEMATOCRIT 22.6 % (37.0-47.0); HEMOGLOBIN 7.3 g/dl (12.0-16.0); LYMPHOCYTES # 1.2 10^3/ul (0.8-2.9); LYMPHOCYTES % 17.8 % (15.0-51.0); MEAN CORPUSCULAR HEMOGLOBIN 33.2 pg (29.0-33.0); MEAN CORPUSCULAR HGB CONC 32.3 g/dl (32.0-37.0); MEAN CORPUSCULAR VOLUME 102.7 fl (82.0-101.0); MEAN PLATELET VOLUME 9.8 fl (7.4-10.4); MONOCYTES % 14.4 % (0.0-11.0); NEUTROPHIL # 4.3 10^3/ul (1.6-7.5); PLATELET COUNT 166 10^3/UL (140-415); RED CELL DISTRIBUTION WIDTH 17.3 % (11.5-14.5); WHITE BLOOD COUNT 6.8 10^3/ul (4.8-10.8)
[2017-05-02] MEDS: CLOPIDOGREL 75 MG TAB PO SCH (08:36)
[2017-05-02] MEDS: ISOSORBIDE MONONITRATE(SR)30 MG TAB PO SCH (08:36)
[2017-05-02] MEDS: FAMOTIDINE 20 MG INJ IV SCH (08:36)
[2017-05-02 08:44] LABS: CALCIUM 8.2 mg/dl (8.4-10.2); CREATININE 0.89 mg/dl (0.44-1.00); POTASSIUM 4.6 mmol/L (3.5-5.1)
[2017-05-02] MEDS: LEVETIRACETAM IV 750 MG in DEXTROSE 5% 100 ML IVPB SCH ×2 (10:03→21:34)
--- NOTE | 2017-05-02 13:12 | CONS ---
Date/Time of Note Date/Time of Note DATE: 05/02/17 TIME: 13:04 Assessment/Plan Assessment/Plan Chief Complaint/Hosp Course IMP: 1. Positive trop-minimal and now trended negative in setting of severe anemia 2.Chest pain-ciurrently improved 3.H/O TAVR 4.? H/O Cabg 5.anemia-severe 6. H/O hip replacement 7. Bacteremia-E Coli/urosepsis 8. UTI-E Coli REcc: -Tele -would d/c plavix given severe anemia and consider baby asa -imdur as tolerated for cp and consider BB if BP will allow -Follow hgb closely -NL EF by echo this admit with properly functioning aortic valve prothesis -Continue abx's and f/u cx data -Will consider lexiscan to assess significance of initial positive troponin Problems: Consultation Date/Type/Reason Admit Date/Time Apr 29, 2017 at 14:49 Initial Consult Date 04/30/2017 Type of Consultation: cardiology Reason for Consultation positive troponin Referring Provider: IVAN LANDAVERDE MD Exam/Review of Systems Vital Signs Vitals Vital Signs Date Time Temp Pulse Resp B/P Pulse Ox O2 Delivery O2 Flow Rate FiO2 05/02/17 12:04 89 05/02/17 11:48 98.4 18 99/62 99 05/01/17 20:30 Nasal Cannula 2.0 Intake and Output 05/01/17 05/01/17 05/02/17 15:00 23:00 07:00 Intake Total 430 ml 300 ml Output Total 1200 ml Balance 430 ml -900 ml Exam Review of Systems: CONSTITUTIONAL: No fevers, chills. PULMONARY: No sob CARDIOVASCULAR: intermittent chest pain GASTROINTESTINAL: No nausea/vomiting. GENITOURINARY: No hematuria/dysuria. MUSCULOSKELETAL: No myagias/arthalgias. PSYCHIATRIC: The patient denies depression. NEUROLOGIC: No weakness Constitutional: alert, oriented Psych: no complaints Head: normocephalic ENMT: mucosa pink and moist Neck: jvd (9 cm water), supple Respiratory: clear to auscultation Cardiovascular: regular rate and rhythm Gastrointestinal: non-tender, soft Musculoskeletal: muscle weakness (mild generalized) Extremities: edema (none) Neurological: other (No focal deficits) Results Result Diagram: 05/02/17 0756 05/02/17 0756 Results 24 hrs Laboratory Tests Test 05/01/17 18:02 05/02/17 00:46 05/02/17 07:56 05/02/17 12:06 Troponin I 0.058 0.061 0.057 0.040 White Blood Count 6.8 # Red Blood Count 2.20 L Hemoglobin 7.3 L Hematocrit 22.6 L Mean Corpuscular Volume 102.7 H Mean Corpuscular Hemoglobin 33.2 H Mean Corpuscular Hemoglobin Concent 32.3 Red Cell Distribution Width 17.3 H Platelet Count 166 Mean Platelet Volume 9.8 Neutrophils % 63.0 Lymphocytes % 17.8 Monocytes % 14.4 H Eosinophils % 3.8 Basophils % 0.4 Nucleated Red Blood Cells % 0.0 Neutrophils # 4.3 Lymphocytes # 1.2 Monocytes # 1.0 H Eosinophils # 0.3 Basophils # 0.0 Nucleated Red Blood Cells # 0.0 Sodium Level 143 Potassium Level 4.6 Chloride Level 111 H Carbon Dioxide Level 26 Anion Gap 11 Blood Urea Nitrogen 15 Creatinine 0.89 Glucose Level 93 Calcium Level 8.2 L Medications Medications Current Medications Ondansetron HCl (Zofran Inj) 4 mg Q6H PRN IV NAUSEA AND/OR VOMITING; Start 04/29/17 at 15:00 Acetaminophen (Tylenol Tab) 650 mg Q6H PRN PO PAIN LEVEL 1-3 OR FEVER Last administered on 05/01/17 17:39; Admin Dose 650 MG; Start 04/29/17 at 15:00 Acetaminophen (Tylenol Supp) 650 mg Q6H PRN [place] PAIN LEVEL 1-3 OR FEVER; Start 04/29/17 at 15:00 Docusate Sodium (Colace) 100 mg Q12H PRN PO CONSTIPATION; Start 04/29/17 at 15: 00 Magnesium Hydroxide (Milk Of Mag) 30 ml DAILY PRN PO CONSTIPATION; Start at 15:00 Bisacodyl (Dulcolax) 5 mg DAILY PRN PO CONSTIPATION; Start 04/29/17 at 15:00 Famotidine 20 mg 20 mg Q24H IV Last administered on 05/02/17 08:36; Admin Dose 20 MG; Start 04/30/17 at 09:00 Ceftriaxone Sodium 50 ml @ 100 mls/hr Q24H IVPB Last administered on 17:38; Admin Dose 100 MLS/HR; Start 04/29/17 at 16:00 Levetiracetam/ Dextrose (Keppra Iv/D5W) 107.5 ml @ 430 mls/hr Q12 IVPB Last administered on 05/02/17 10:03; Admin Dose 430 MLS/HR; Start 04/29/17 at 21:00 Isosorbide Mononitrate (Imdur) 30 mg DAILY PO Last administered on 05/02/17 08:36; Admin Dose 30 MG; Start 04/30/17 at 11:00 Clopidogrel Bisulfate (plaVIX) 75 mg DAILY PO Last administered on 05/02/17 08:36; Admin Dose 75 MG; Start 04/30/17 at 11:00 MAUREEN HANDY May 02, 2017 13:12
--- NOTE | 2017-05-02 15:24 | PN ---
Date/Time of Note Date/Time of Note DATE: 05/02/17 TIME: 15:17 Assessment/Plan VTE Prophylaxis VTE Prophylaxis Intervention: contraindicated Lines/Catheters IV Catheter Type (from Nrs): Saline Lock Urinary Cath still in place: No Assessment/Plan Chief Complaint/Hosp Course 86 y.o with # Sepsis better due to Ecoli Uti and Ecoli bacterimia # Ecoli UTI # Elevated troponin in setting of TAVR and s/p CABG # hx GI bleed on plavix now anemic #. S/p right hip arthroplasty at [facility] # . Hyponatremia resolved #. acute kidney injury, with possible underlying chronic kidney disease, #. history of gastrointestinal bleed # history of coronary artery bypass graft #. history of seizure disorder. #. Status post percutaneous aortic valve placement Recs - c/w Rocephin, repeat bld cx - ID consult - dc plavix - Follow H/H - GI consult for anemia with hx of GI bleed in past - Nuclear stress tmw per cards - on imdur/MTP per cards - No blood thinners Problems: Subjective 24 Hr Interval Summary Free Text/Dictation Overall pt feels better BP still low side ucx+ Ecoli and bld cx+ecoli pansensitive Exam/Review of Systems Vital Signs Vitals Vital Signs Date Time Temp Pulse Resp B/P Pulse Ox O2 Delivery O2 Flow Rate FiO2 05/02/17 12:04 89 05/02/17 11:48 98.4 18 99/62 99 05/02/17 08:30 Nasal Cannula 2.0 Intake and Output 05/01/17 05/01/17 05/02/17 15:00 23:00 07:00 Intake Total 430 ml 300 ml Output Total 1200 ml Balance 430 ml -900 ml Exam ENMT: mucosa pink and moist Neck: jvd (9 cm water), supple Respiratory: clear to auscultation Cardiovascular: regular rate and rhythm Gastrointestinal: non-tender, soft Extremities: Left hip s/p surgery, slight warm Neurological: (No focal deficits) Results Result Diagram: 05/02/17 0756 05/02/17 0756 Results 24 hrs Laboratory Tests Test 05/01/17 18:02 05/02/17 00:46 05/02/17 07:56 05/02/17 12:06 Troponin I 0.058 0.061 0.057 0.040 White Blood Count 6.8 # Red Blood Count 2.20 L Hemoglobin 7.3 L Hematocrit 22.6 L Mean Corpuscular Volume 102.7 H Mean Corpuscular Hemoglobin 33.2 H Mean Corpuscular Hemoglobin Concent 32.3 Red Cell Distribution Width 17.3 H Platelet Count 166 Mean Platelet Volume 9.8 Neutrophils % 63.0 Lymphocytes % 17.8 Monocytes % 14.4 H Eosinophils % 3.8 Basophils % 0.4 Nucleated Red Blood Cells % 0.0 Neutrophils # 4.3 Lymphocytes # 1.2 Monocytes # 1.0 H Eosinophils # 0.3 Basophils # 0.0 Nucleated Red Blood Cells # 0.0 Sodium Level 143 Potassium Level 4.6 Chloride Level 111 H Carbon Dioxide Level 26 Anion Gap 11 Blood Urea Nitrogen 15 Creatinine 0.89 Glucose Level 93 Calcium Level 8.2 L Medications Medications Current Medications Ondansetron HCl (Zofran Inj) 4 mg Q6H PRN IV NAUSEA AND/OR VOMITING; Start 04/29/17 at 15:00 Acetaminophen (Tylenol Tab) 650 mg Q6H PRN PO PAIN LEVEL 1-3 OR FEVER Last administered on 05/01/17 17:39; Admin Dose 650 MG; Start 04/29/17 at 15:00 Acetaminophen (Tylenol Supp) 650 mg Q6H PRN [place] PAIN LEVEL 1-3 OR FEVER; Start 04/29/17 at 15:00 Docusate Sodium (Colace) 100 mg Q12H PRN PO CONSTIPATION; Start 04/29/17 at 15: 00 Magnesium Hydroxide (Milk Of Mag) 30 ml DAILY PRN PO CONSTIPATION; Start at 15:00 Bisacodyl (Dulcolax) 5 mg DAILY PRN PO CONSTIPATION; Start 04/29/17 at 15:00 Famotidine 20 mg 20 mg Q24H IV Last administered on 05/02/17 08:36; Admin Dose 20 MG; Start 04/30/17 at 09:00 Ceftriaxone Sodium 50 ml @ 100 mls/hr Q24H IVPB Last administered on 17:38; Admin Dose 100 MLS/HR; Start 04/29/17 at 16:00 Levetiracetam/ Dextrose (Keppra Iv/D5W) 107.5 ml @ 430 mls/hr Q12 IVPB Last administered on 05/02/17 10:03; Admin Dose 430 MLS/HR; Start 04/29/17 at 21:00 Isosorbide Mononitrate (Imdur) 30 mg DAILY PO Last administered on 05/02/17 08:36; Admin Dose 30 MG; Start 04/30/17 at 11:00 Clopidogrel Bisulfate (plaVIX) 75 mg DAILY PO Last administered on 05/02/17 08:36; Admin Dose 75 MG; Start 04/30/17 at 11:00; Status Future Hold Metoprolol Tartrate (Lopressor) 12.5 mg BID PO ; Start 05/02/17 at 21:00 AZAR TA MD May 02, 2017 15:24
[2017-05-02] MEDS: ACETAMINOPHEN 325 MG TAB PO PRN (16:14)
[2017-05-02] MEDS: CEFTRIAXONE 1 GM/50 ML (PMX) 50 ML IVPB SCH (16:14)
[2017-05-02] MEDS: METOPROLOL 25 MG TAB PO SCH (21:00)
[2017-05-02] MEDS: LATANOPROST 0.005% 2.5 ML OPH BOTH EYES SCH (21:39)
--- NOTE | 2017-05-02 22:55 | CONS ---
DATE OF ADMISSION: 04/29/2017 DATE OF CONSULTATION: 05/02/2017 TYPE OF CONSULTATION: Infectious disease. REASON FOR CONSULTATION: Antibiotic management. HISTORY OF PRESENT ILLNESS: Kasia Pak is an 86-year-old female, patient of Dr. Cody, who is ad mitted with systemic inflammatory response syndrome. She had a urinary tract infection. Her past p roblems include: 1. History of TAVR. 2. History of seizure disorder. 3. History of femoral fracture and repair. She now returns to the hospital with a temperature of 101.2, pulse of 121, blood pressure 117/50. T he patient initially had a white count of 17.9, now white count 6.8, H and H 7.3 and 22.6, platelet count 166,000. BUN and creatinine is 15/0.89. Urine positive for nitrite and leukocyte esterase 2+ , 95 white cells per high-power field. So, the patient has a urinary tract infection. She was plac ed on ceftriaxone. Her urine grew out E. coli and her blood grew out E. coli, sensitive to cefazoli n. Chest x-ray shows 3 post-sternotomy wires. Percutaneous aortic valve is in place. Mild atheros clerotic aortic calcification. No acute cardiopulmonary disease. Status post coronary bypass graft and percutaneous aortic valve. HOSPITAL COURSE: The patient is septic secondary to E. coli UTI and bacteremia. Elevated troponin in the setting of aortic valve replacement and status post coronary bypass grafting, history of GI b leed on Plavix, patient now anemic, status post right hip arthroplasty at [facility], hypon atremia resolved, acute kidney injury with possible underlying chronic renal disease, history of GI bleed, history of coronary artery bypass grafting, history of seizure disorder, status post percutan eous aortic valve replacement as noted. The patient currently on Rocephin. PAST MEDICAL HISTORY: Operations as outlined. FAMILY HISTORY: Noncontributory. SOCIAL HISTORY: She does not smoke, drink or abuse drugs. ALLERGIES: NONE TO PENICILLIN, SULFA OR FOODS. MEDICATIONS: Per chart. REVIEW OF SYSTEMS: As per HPI. PHYSICAL EXAMINATION: GENERAL: The patient is a well-developed, well-nourished female who is awake, responsive, in no acu te distress. VITAL SIGNS: Stable. She is afebrile. SKIN: Without generalized rash. HEENT: Within normal limits. NECK: Supple. LYMPH NODES: None palpable. CHEST: Decreased breath sounds at the bases. HEART: Without murmur or gallop. ABDOMEN: Soft, nontender, without organosplenomegaly or masses. EXTREMITIES: Left hip status post surgery. RECTAL AND GENITAL: Deferred. NEUROLOGIC: No focal neurological abnormality. IMPRESSION AND PLAN: The patient currently is on ceftriaxone for significant urinary tract infectio n with sepsis. The patient was also seen by cardiology with Dr. Toro. He discontinued Plavix gi melinda severe anemia. Consider baby aspirin. Will continue on current therapy. I will dictate my fin dings to Dr. Cody, Dr. Snider and the consultants. Dictated By: FEDERICO PERRY MD, JD/REYNALDO Conf#: [id number] DID#: [id number] CC: AZAR TA;*EndCC*
--- NOTE | 2017-05-02 23:41 | CONS ---
DATE OF ADMISSION: 04/29/2017 DATE OF CONSULTATION: Dear Dr. Ta and Dr. Cody: Thank you for asking me to see Ms. Pak in GI consultation. HISTORY OF PRESENT ILLNESS: The patient, as you know, is an 86-year-old Citizen Of [place] female who is ad mitted to the hospital because of E. coli sepsis and bacteremia, and also urinary tract infection. GI consultation is requested because of anemia with a hemoglobin 7.2, with a high MCV. She has elev ated troponin level, for which she is scheduled to have a stress test. She also had a percutaneous aortic valve replacement and history of coronary artery bypass surgery. There is a history of havin g gastric ulcer in the past, which was hemoclipped in the past. She has been on Plavix at thi s time. The patient denies any nausea, vomiting, abdominal pain or passing blood from the rectum. PAST MEDICAL HISTORY: Includes the right hip arthroplasty at [facility]. She has: 1. Electrolyte imbalance. 2. Kidney failure. 3. History of coronary artery disease. 4. Seizure disorder. MEDICATIONS: Currently includes: 1. Metoprolol. 2. Calcium carbonate. 3. Imdur. 4. Plavix. 5. Pepcid. 6. Zofran. 7. Tylenol. 8. Colace. 9. Milk of magnesia. 10. Dulcolax. PHYSICAL EXAMINATION: GENERAL: The patient is an 86-year-old Citizen Of [place] female, who at this time, she is alert, she is th in built, she is afebrile. CARDIOVASCULAR: Normal heart sounds. RESPIRATORY: Normal breath sounds. ABDOMEN: Showed unremarkable findings. VITAL SIGNS: Temperature 97.8, blood pressure is 98/57. LABORATORY WORKUP: WBC count is 6800, hemoglobin 7.3, hematocrit 22.6, platelet count 166,000, lymp hocytes 17, monocytes 14, potassium 4.6, chloride is 111, sodium 143, BUN 15, creatinine 0.89, AST 3 0, ALT 33, alkaline phosphatase 115. Troponin 0.188, 0.242. Chest x-ray shows no acute proce ss. CLINICAL IMPRESSION: 1. The patient presenting with history of severe anemia, although is macrocytic picture. One shoul d rule out the possibility of gastrointestinal bleeding based on the fact that she has history of ul cer which was hemoclipped in the past, rule out arteriovenous malformation and colorectal neoplasm. 2. Other medical problems essentially as mentioned above, history of percutaneous aortic valve repl acement. 3. Seizure disorder. 4. Electrolyte imbalance. 5. Osteopenia. 6. Status post coronary artery bypass surgery. PLAN: At this time, recommend EGD and a colonoscopy once the patient is cleared by the fuels engineer . Dictated By: DEBBIE BRIDGES/REYNALDO Conf#: [id number] DID#: [id number] CC: Tariq TA;*EndCC*
[2017-05-03] VITALS (12 sets, daily range): BP systolic 103–124; BP diastolic 58–73; PULSE 80–97; RESP 17–20
[2017-05-03] MEDS: FAMOTIDINE 20 MG INJ IV SCH (09:04)
[2017-05-03] MEDS: ISOSORBIDE MONONITRATE(SR)30 MG TAB PO SCH (09:05)
[2017-05-03] MEDS: METOPROLOL 25 MG TAB PO SCH ×2 (09:06→21:02)
[2017-05-03 09:08] LABS: BASOPHILS % 0.5 % (0.0-2.0); EOSINOPHILS # 0.2 10^3/ul (0.0-0.5); EOSINOPHILS % 4.1 % (0.0-7.0); HEMATOCRIT 23.3 % (37.0-47.0); HEMOGLOBIN 7.6 g/dl (12.0-16.0); LYMPHOCYTES # 1.4 10^3/ul (0.8-2.9); LYMPHOCYTES % 23.8 % (15.0-51.0); MEAN CORPUSCULAR HEMOGLOBIN 33.3 pg (29.0-33.0); MEAN CORPUSCULAR HGB CONC 32.6 g/dl (32.0-37.0); MEAN CORPUSCULAR VOLUME 102.2 fl (82.0-101.0); MEAN PLATELET VOLUME 10.1 fl (7.4-10.4); MONOCYTE # 0.8 10^3/ul (0.3-0.9); MONOCYTES % 13.9 % (0.0-11.0); NEUTROPHIL # 3.3 10^3/ul (1.6-7.5); PLATELET COUNT 192 10^3/UL (140-415); RED BLOOD COUNT 2.28 10^6/ul (4.20-5.40); RED CELL DISTRIBUTION WIDTH 17.2 % (11.5-14.5); WHITE BLOOD COUNT 5.8 10^3/ul (4.8-10.8)
--- NOTE | 2017-05-03 09:35 | CONS ---
Date/Time of Note Date/Time of Note DATE: 05/03/17 TIME: 09:31 Assessment/Plan Assessment/Plan Additional Assessment/Plan 1. Positive trop-minimal and now trended negative in setting of severe anemia - hemoglobin still low - will do rest portion now - pending H/H increase to do stress portion. 2. Chest pain-Currently improved - med rx to follow for now. 3. h/o TAVR - will review ECHO. 4.? H/O Cabg - no CP now - top be monitored 5.anemia-severe - blood Tx to follow 6. H/O hip replacement 7. Bacteremia-E Coli/urosepsis - on anti-Bx 8. UTI-E Coli - on ati-bx. Consultation Date/Type/Reason Admit Date/Time Apr 29, 2017 at 14:49 Initial Consult Date Type of Consultation: cardiology Referring Provider: IVAN LANDAVERDE MD 24 HR Interval Summary Free Text/Dictation NO acute events - BP stable - still low H/H - will defer stress potrion of Gwendolyn for H/H improvement. ROS: No fever, no chills, no nausea, no vomiting, no diarrhea/constipation No recent weight changes No chest pain, no PND, no orthopnea No dizziness, blurred vision No thirst, no heat or cold intolerance Exam/Review of Systems Vital Signs Vitals Vital Signs Date Time Temp Pulse Resp B/P Pulse Ox O2 Delivery O2 Flow Rate FiO2 05/03/17 08:11 96 05/03/17 07:55 98.7 17 120/69 96 05/02/17 21:35 Nasal Cannula 2.0 Intake and Output 05/02/17 05/02/17 05/03/17 15:00 23:00 07:00 Intake Total 1180 ml 400 ml Output Total 1300 ml Balance 1180 ml -900 ml Exam General: WN/WD/NAD, AOx 2-3 HEENT: Unicetric/atraumatic/EOMI (follows commands) NECK: JVD elevated, no thyromegaly Lymph: no lymphadenopathy HEART: regular with no S3, II/ systolic murmur at apex LUNGS: Coarse sounds ABD: soft, NT, ND, +BS : Intact Neuro: non focal SKIN: chronic changes EXT: trace edema Results Result Diagram: 05/03/17 0725 05/02/17 0756 Results 24 hrs Laboratory Tests Test 05/02/17 12:06 05/03/17 07:25 Troponin I 0.040 White Blood Count 5.8 Red Blood Count 2.28 L Hemoglobin 7.6 L Hematocrit 23.3 L Mean Corpuscular Volume 102.2 H Mean Corpuscular Hemoglobin 33.3 H Mean Corpuscular Hemoglobin Concent 32.6 Red Cell Distribution Width 17.2 H Platelet Count 192 Mean Platelet Volume 10.1 Neutrophils % 57.0 Lymphocytes % 23.8 Monocytes % 13.9 H Eosinophils % 4.1 Basophils % 0.5 Nucleated Red Blood Cells % 0.0 Neutrophils # 3.3 Lymphocytes # 1.4 Monocytes # 0.8 Eosinophils # 0.2 Basophils # 0.0 Nucleated Red Blood Cells # 0.0 Medications Medications Current Medications Ondansetron HCl (Zofran Inj) 4 mg Q6H PRN IV NAUSEA AND/OR VOMITING; Start 04/29/17 at 15:00 Acetaminophen (Tylenol Tab) 650 mg Q6H PRN PO PAIN LEVEL 1-3 OR FEVER Last administered on 05/02/17 16:14; Admin Dose 650 MG; Start 04/29/17 at 15:00 Acetaminophen (Tylenol Supp) 650 mg Q6H PRN [place] PAIN LEVEL 1-3 OR FEVER; Start 04/29/17 at 15:00 Docusate Sodium (Colace) 100 mg Q12H PRN PO CONSTIPATION; Start 04/29/17 at 15: 00 Magnesium Hydroxide (Milk Of Mag) 30 ml DAILY PRN PO CONSTIPATION; Start at 15:00 Bisacodyl (Dulcolax) 5 mg DAILY PRN PO CONSTIPATION; Start 04/29/17 at 15:00 Famotidine 20 mg 20 mg Q24H IV Last administered on 05/03/17 09:04; Admin Dose 20 MG; Start 04/30/17 at 09:00 Ceftriaxone Sodium 50 ml @ 100 mls/hr Q24H IVPB Last administered on 16:14; Admin Dose 100 MLS/HR; Start 04/29/17 at 16:00 Levetiracetam/ Dextrose (Keppra Iv/D5W) 107.5 ml @ 430 mls/hr Q12 IVPB Last administered on 05/02/17 21:34; Admin Dose 430 MLS/HR; Start 04/29/17 at 21:00 Isosorbide Mononitrate (Imdur) 30 mg DAILY PO Last administered on 05/03/17 09:05; Admin Dose 30 MG; Start 04/30/17 at 11:00 Clopidogrel Bisulfate (plaVIX) 75 mg DAILY PO Last administered on 05/02/17 08:36; Admin Dose 75 MG; Start 04/30/17 at 11:00; Status Future Hold Metoprolol Tartrate (Lopressor) 12.5 mg BID PO Last administered on 05/03/17 09:06; Admin Dose 12.5 MG; Start 05/02/17 at 21:00 Latanoprost (Xalatan) 1 drop QHS BOTH EYES Last administered on 05/02/17 21: 39; Admin Dose 1 DROP; Start 05/02/17 at 21:00 KANG MI MD May 03, 2017 09:35
[2017-05-03 09:42] LABS: CALCIUM 8.9 mg/dl (8.4-10.2); CREATININE 0.92 mg/dl (0.44-1.00); POTASSIUM 4.4 mmol/L (3.5-5.1)
[2017-05-03] MEDS: LEVETIRACETAM IV 750 MG in DEXTROSE 5% 100 ML IVPB SCH ×2 (11:52→21:04)
--- NOTE | 2017-05-03 14:22 | PN ---
Date/Time of Note Date/Time of Note DATE: 05/03/17 TIME: 14:21 Assessment/Plan VTE Prophylaxis VTE Prophylaxis Intervention: SCD's Lines/Catheters IV Catheter Type (from Nrs): Saline Lock Urinary Cath still in place: No Assessment/Plan Chief Complaint/Hosp Course 86 y.o with # Sepsis better due to Ecoli Uti and Ecoli bacterimia # Ecoli UTI # Elevated troponin in setting of TAVR and s/p CABG # hx GI bleed on plavix now anemic #. S/p right hip arthroplasty at [facility] # . Hyponatremia resolved #. acute kidney injury, with possible underlying chronic kidney disease, #. history of gastrointestinal bleed # history of coronary artery bypass graft #. history of seizure disorder. #. Status post percutaneous aortic valve placement Recs - c/w Rocephin, repeat bld cx - Stress test , stress portion tmw - Follow H/H - GI consult for anemia with hx of GI bleed in past, will need EGD/Colonoscopy when cleared by cards - on imdur/MTP per cards - No blood thinners Problems: Subjective 24 Hr Interval Summary Free Text/Dictation Pt is feeling better today Exam/Review of Systems Vital Signs Vitals Vital Signs Date Time Temp Pulse Resp B/P Pulse Ox O2 Delivery O2 Flow Rate FiO2 05/03/17 12:14 80 05/03/17 12:05 98.0 18 103/60 97 05/03/17 08:00 Nasal Cannula 2.0 Intake and Output 05/02/17 05/02/17 05/03/17 15:00 23:00 07:00 Intake Total 1180 ml 400 ml Output Total 1300 ml Balance 1180 ml -900 ml Exam HEENT: mucosa pink and moist Neck: jvd (9 cm water), supple Respiratory: clear to auscultation Cardiovascular: regular rate and rhythm Gastrointestinal: non-tender, soft Extremities: Left hip s/p surgery, slight warm Neurological: (No focal deficits) Results Result Diagram: 05/03/1772405/03/17 0725 Results 24 hrs Laboratory Tests Test 05/03/17 07:25 White Blood Count 5.8 Red Blood Count 2.28 L Hemoglobin 7.6 L Hematocrit 23.3 L Mean Corpuscular Volume 102.2 H Mean Corpuscular Hemoglobin 33.3 H Mean Corpuscular Hemoglobin Concent 32.6 Red Cell Distribution Width 17.2 H Platelet Count 192 Mean Platelet Volume 10.1 Neutrophils % 57.0 Lymphocytes % 23.8 Monocytes % 13.9 H Eosinophils % 4.1 Basophils % 0.5 Nucleated Red Blood Cells % 0.0 Neutrophils # 3.3 Lymphocytes # 1.4 Monocytes # 0.8 Eosinophils # 0.2 Basophils # 0.0 Nucleated Red Blood Cells # 0.0 Sodium Level 142 Potassium Level 4.4 Chloride Level 108 Carbon Dioxide Level 28 Anion Gap 10 Blood Urea Nitrogen 16 Creatinine 0.92 Glucose Level 92 Calcium Level 8.9 Troponin I 0.037 Medications Medications Current Medications Ondansetron HCl (Zofran Inj) 4 mg Q6H PRN IV NAUSEA AND/OR VOMITING; Start 04/29/17 at 15:00 Acetaminophen (Tylenol Tab) 650 mg Q6H PRN PO PAIN LEVEL 1-3 OR FEVER Last administered on 05/02/17 16:14; Admin Dose 650 MG; Start 04/29/17 at 15:00 Acetaminophen (Tylenol Supp) 650 mg Q6H PRN [place] PAIN LEVEL 1-3 OR FEVER; Start 04/29/17 at 15:00 Docusate Sodium (Colace) 100 mg Q12H PRN PO CONSTIPATION; Start 04/29/17 at 15: 00 Magnesium Hydroxide (Milk Of Mag) 30 ml DAILY PRN PO CONSTIPATION; Start at 15:00 Bisacodyl (Dulcolax) 5 mg DAILY PRN PO CONSTIPATION; Start 04/29/17 at 15:00 Famotidine 20 mg 20 mg Q24H IV Last administered on 05/03/17 09:04; Admin Dose 20 MG; Start 04/30/17 at 09:00 Ceftriaxone Sodium 50 ml @ 100 mls/hr Q24H IVPB Last administered on 16:14; Admin Dose 100 MLS/HR; Start 04/29/17 at 16:00 Levetiracetam/ Dextrose (Keppra Iv/D5W) 107.5 ml @ 430 mls/hr Q12 IVPB Last administered on 05/03/17 11:52; Admin Dose 430 MLS/HR; Start 04/29/17 at 21:00 Isosorbide Mononitrate (Imdur) 30 mg DAILY PO Last administered on 05/03/17 09:05; Admin Dose 30 MG; Start 04/30/17 at 11:00 Clopidogrel Bisulfate (plaVIX) 75 mg DAILY PO Last administered on 05/02/17 08:36; Admin Dose 75 MG; Start 04/30/17 at 11:00; Status Future Hold Metoprolol Tartrate (Lopressor) 12.5 mg BID PO Last administered on 05/03/17 09:06; Admin Dose 12.5 MG; Start 05/02/17 at 21:00 Latanoprost (Xalatan) 1 drop QHS BOTH EYES Last administered on 05/02/17 21: 39; Admin Dose 1 DROP; Start 05/02/17 at 21:00 AZAR TA MD May 03, 2017 14:22
[2017-05-03] MEDS: CEFTRIAXONE 1 GM/50 ML (PMX) 50 ML IVPB SCH (16:33)
--- NOTE | 2017-05-03 17:05 | PN ---
DATE: 05/03/2017 SUBJECTIVE: No events overnight. The patient is alert, looks comfortable. Denies pain. She is af ebrile. LABORATORY: WBC today 5.8, no shift, no bands. BUN 16, creatinine 0.92. MICROBIOLOGY: Blood and urine culture growing E. coli susceptible to fluoroquinolones. Stool for C . diff came back negative. ANTIMICROBIALS: The patient is on IV Rocephin. PHYSICAL EXAMINATION: GENERAL: Fragile, well-developed, elderly woman who is alert, in no distress. HEENT: Head atraumatic, normocephalic. Sclerae anicteric. Buccal mucosa pink. NECK: Supple. CHEST: Rise symmetrical. Breath sounds clear. HEART: S1, S2. ABDOMEN: Soft, bowel tones present. EXTREMITIES: Without cyanosis or edema. ASSESSMENT: 1. Escherichia coli urinary tract infection with bacteremia. 2. Acute anemia. 3. History of seizure disorder. 4. History of aortic valve replacement. 5. History of coronary artery bypass graft. 6. History of hip replacement. PLAN: The patient remains stable. Cardiology and gastroenterology on the case. Pending EGD and co lonoscopy once she gets cardiac clearance. Anticipate discharge on oral ciprofloxacin once the jose ent is ready. Repeat blood cultures. Dictated By: CHIQUI LIGHT QUARTER BACKER for FEDERICO CONLEY/REYNALDO Conf#: [id number] DID#: [id number] CC: AZAR TA;*EndCC*
[2017-05-03] MEDS: ACETAMINOPHEN 325 MG TAB PO PRN (21:01)
[2017-05-03] MEDS: LATANOPROST 0.005% 2.5 ML OPH BOTH EYES SCH (21:02)
[2017-05-04] VITALS (12 sets, daily range): BP systolic 99–130; BP diastolic 55–68; PULSE 77–100; RESP 16–18
--- NOTE | 2017-05-04 08:01 | PN ---
DATE: 05/03/2017 The patient was seen by me because of anemia, which is a severe degree of anemia, hemoglobin around 7.1 grams, at one time 6.8. Rule out peptic ulcer disease, GI malignancy. The patient is undergoin g cardiac evaluation. She had a stress test today. She will have the second part of the stress ema t tomorrow. Once this stress test is performed and once and there is no cardiac contraindicat ion, patient will have upper endoscopy, as well as lower endoscopy. Dictated By: DEBBIE PEREZ MD NC/NTS Conf#: [id number] DID#: [id number] CC: AZAR TA;*End*
[2017-05-04] MEDS: LEVETIRACETAM IV 750 MG in DEXTROSE 5% 100 ML IVPB SCH ×2 (09:35→21:36)
[2017-05-04] MEDS: FAMOTIDINE 20 MG INJ IV SCH (09:35)
[2017-05-04] MEDS: METOPROLOL 25 MG TAB PO SCH ×2 (09:36→21:36)
[2017-05-04] MEDS: ISOSORBIDE MONONITRATE(SR)30 MG TAB PO SCH (09:37)
[2017-05-04 11:54] LABS: BASOPHILS % 0.6 % (0.0-2.0); EOSINOPHILS # 0.3 10^3/ul (0.0-0.5); EOSINOPHILS % 6.4 % (0.0-7.0); HEMATOCRIT 25.2 % (37.0-47.0); HEMOGLOBIN 8.3 g/dl (12.0-16.0); LYMPHOCYTES % 20.2 % (15.0-51.0); MEAN CORPUSCULAR HEMOGLOBIN 34.2 pg (29.0-33.0); MEAN CORPUSCULAR HGB CONC 32.9 g/dl (32.0-37.0); MEAN CORPUSCULAR VOLUME 103.7 fl (82.0-101.0); MEAN PLATELET VOLUME 9.9 fl (7.4-10.4); MONOCYTE # 0.5 10^3/ul (0.3-0.9); NEUTROPHIL # 3.1 10^3/ul (1.6-7.5); NEUTROPHILS % 61.4 % (39.0-77.0); PLATELET COUNT 227 10^3/UL (140-415); RED BLOOD COUNT 2.43 10^6/ul (4.20-5.40); RED CELL DISTRIBUTION WIDTH 17.4 % (11.5-14.5)
--- NOTE | 2017-05-04 12:04 | RADRPT ---
PROCEDURE: Nuclear medicine myocardial perfusion scan, breast only. CLINICAL INDICATION: Chest pain Positive troponin levels TECHNIQUE: 11.0 mCi of technetium 99m Cardiolite was administered for the stress study. Images w ere reviewed in the short axis, vertical long axis, and horizontal long axis views. Wall motion dilma dies and estimated left ventricular ejection fraction were not obtained. Images were reviewed on a h igh-resolution PACS workstation. COMPARISON: None available FINDINGS: Left ventricular size is within normal limits. The resting tomographic images demonstrate a normal pattern of perfusion. IMPRESSION: 1. Limited resting myocardial study. No perfusion defects identified. RPTAT: [facility] Physician Charu Date Time Electronically viewed and signed by Physician Charu on 05/04/2017 12:03 /
[2017-05-04] MEDS ORDERED: LEVETIRACETAM IV 750 MG in DEXTROSE 5% 100 ML IVPB SCH (13:25)
--- NOTE | 2017-05-04 14:30 | PN ---
Date/Time of Note Date/Time of Note DATE: 05/04/17 TIME: 14:24 Assessment/Plan VTE Prophylaxis VTE Prophylaxis Intervention: contraindicated Lines/Catheters IV Catheter Type (from Nrs): Saline Lock Urinary Cath still in place: No Assessment/Plan Chief Complaint/Hosp Course 86 y.o with # Sepsis better due to Ecoli Uti and Ecoli bacterimia # Ecoli UTI # Elevated troponin in setting of TAVR and s/p CABG # hx GI bleed on plavix now anemic #. S/p right hip arthroplasty at [facility] # . Hyponatremia resolved #. acute kidney injury, with possible underlying chronic kidney disease, #. history of gastrointestinal bleed # history of coronary artery bypass graft #. history of seizure disorder. #. Status post percutaneous aortic valve placement Recs - c/w Rocephin, repeat bld cx negative so far - Spoke to Dr Mirza who will document about stress testing , then will talk to Dr Sal for EGD/Colonoscopy - Follow H/H - GI consult for anemia with hx of GI bleed in past, will need EGD/Colonoscopy when cleared by cards - on imdur/MTP per cards - No blood thinners Problems: Subjective 24 Hr Interval Summary Free Text/Dictation Pt could not have stress test 2nd part as was anemic spoke to Dr Mirza who thinks it is high risk ( stress test) for not high risk procedure which is EGD Exam/Review of Systems Vital Signs Vitals Vital Signs Date Time Temp Pulse Resp B/P Pulse Ox O2 Delivery O2 Flow Rate FiO2 05/04/17 12:31 80 05/04/17 11:43 98.1 16 107/62 100 05/04/17 08:00 Nasal Cannula 2.0 Intake and Output 05/03/17 05/03/17 05/04/17 14:59 22:59 06:59 Intake Total 107.5 ml 800 ml 300 ml Balance 107.5 ml 800 ml 300 ml Exam EENT: mucosa pink and moist Neck: jvd (9 cm water), supple Respiratory: clear to auscultation Cardiovascular: regular rate and rhythm Gastrointestinal: non-tender, soft Extremities: Left hip s/p surgery, slight warm Neurological: (No focal deficits) Results Result Diagram: 05/04/17 1138 05/03/17 0725 Results 24 hrs Laboratory Tests Test 05/04/17 11:38 White Blood Count 5.0 Red Blood Count 2.43 L Hemoglobin 8.3 L Hematocrit 25.2 L Mean Corpuscular Volume 103.7 H Mean Corpuscular Hemoglobin 34.2 H Mean Corpuscular Hemoglobin Concent 32.9 Red Cell Distribution Width 17.4 H Platelet Count 227 Mean Platelet Volume 9.9 Neutrophils % 61.4 Lymphocytes % 20.2 Monocytes % 10.0 Eosinophils % 6.4 Basophils % 0.6 Nucleated Red Blood Cells % 0.0 Neutrophils # 3.1 Lymphocytes # 1.0 Monocytes # 0.5 Eosinophils # 0.3 Basophils # 0.0 Nucleated Red Blood Cells # 0.0 Medications Medications Current Medications Ondansetron HCl (Zofran Inj) 4 mg Q6H PRN IV NAUSEA AND/OR VOMITING; Start 04/29/17 at 15:00 Acetaminophen (Tylenol Tab) 650 mg Q6H PRN PO PAIN LEVEL 1-3 OR FEVER Last administered on 05/03/17 21:01; Admin Dose 650 MG; Start 04/29/17 at 15:00 Acetaminophen (Tylenol Supp) 650 mg Q6H PRN [place] PAIN LEVEL 1-3 OR FEVER; Start 04/29/17 at 15:00 Docusate Sodium (Colace) 100 mg Q12H PRN PO CONSTIPATION; Start 04/29/17 at 15: 00 Magnesium Hydroxide (Milk Of Mag) 30 ml DAILY PRN PO CONSTIPATION; Start at 15:00 Bisacodyl (Dulcolax) 5 mg DAILY PRN PO CONSTIPATION; Start 04/29/17 at 15:00 Famotidine 20 mg 20 mg Q24H IV Last administered on 05/04/17 09:35; Admin Dose 20 MG; Start 04/30/17 at 09:00 Ceftriaxone Sodium (Rocephin) 50 ml @ 100 mls/hr Q24H IVPB Last administered on 05/03/17 16:33; Admin Dose 100 MLS/HR; Start 04/29/17 at 16:00 Isosorbide Mononitrate (Imdur) 30 mg DAILY PO Last administered on 05/04/17 09:37; Admin Dose 30 MG; Start 04/30/17 at 11:00 Clopidogrel Bisulfate (plaVIX) 75 mg DAILY PO Last administered on 05/02/17 08:36; Admin Dose 75 MG; Start 04/30/17 at 11:00; Status Future Hold Metoprolol Tartrate (Lopressor) 12.5 mg BID PO Last administered on 05/04/17 09:36; Admin Dose 12.5 MG; Start 05/02/17 at 21:00 Latanoprost 1 drop 1 drop QHS BOTH EYES Last administered on 05/03/17 21:02; Admin Dose 1 DROP; Start 05/02/17 at 21:00 Levetiracetam/ Dextrose (Keppra Iv/D5W) 107.5 ml @ 430 mls/hr Q12 IVPB ; Start 05/04/17 at 21:00 AZAR TA MD May 04, 2017 14:30
--- NOTE | 2017-05-04 16:03 | CONS ---
Date/Time of Note Date/Time of Note DATE: 05/04/17 TIME: 15:59 Assessment/Plan Assessment/Plan Additional Assessment/Plan 1. PRE-op: pt had CABG in 2007 and TAVR at [facility] 04/2016 - pt had LHC pre-TAVR, per daughter - it was normal. Per family, pt had EGD in July of 2016 in [place] - tolerated well - I think pt is moderate to high risk for any procedure - I spoke with family, do not think Stress test will change therapy - advise blood transfusion and EGD/colonoscopy per GI team as tolerated - family aware of increased risk This was discussed with GI team and Primary. 2. Chest pain-Currently improved - med rx to follow for now. NO CP now. 3. h/o TAVR - stable. 4.? H/O Cabg - no CP now - top be monitored 5.anemia-severe - blood Tx to follow 6. H/O hip replacement 7. Bacteremia-E Coli/urosepsis - on anti-Bx 8. UTI-E Coli - on ati-bx. Consultation Date/Type/Reason Admit Date/Time Apr 29, 2017 at 14:49 Type of Consultation: cardiology Referring Provider: IVAN LANDAVERDE MD 24 HR Interval Summary Free Text/Dictation pt had CABG in 2007 and TAVR at [facility] 04/2016 - pt had LHC pre-TAVR, per daughter - it was normal. Per family, pt had EGD in July of 2016 in [place] - tolerated well - I think pt is moderate to high risk for any procedure - I spoke with family, do not think Stress test will change therapy - advise blood transfusion and EGD/colonoscopy per GI team as tolerated - family aware of increased risk This was discussed with GI team and Primary. ROS: No fever, no chills, no nausea, no vomiting, no diarrhea/constipation No recent weight changes No chest pain, no PND, no orthopnea No dizziness, blurred vision No thirst, no heat or cold intolerance Exam/Review of Systems Vital Signs Vitals Vital Signs Date Time Temp Pulse Resp B/P Pulse Ox O2 Delivery O2 Flow Rate FiO2 05/04/17 12:31 80 05/04/17 11:43 98.1 16 107/62 100 05/04/17 08:00 Nasal Cannula 2.0 Intake and Output 05/03/17 05/03/17 05/04/17 15:00 23:00 07:00 Intake Total 107.5 ml 800 ml 300 ml Balance 107.5 ml 800 ml 300 ml Exam General: WN/WD/NAD, AOx 1-2 HEENT: Unicetric/atraumatic/EOMI (follow commands) NECK: JVD elevated, no thyromegaly Lymph: no lymphadenopathy HEART: regular with no S3, II/ systolic murmur at apex LUNGS: Coarse sounds ABD: soft, NT, ND, +BS : Intact Neuro: non focal SKIN: chronic changes EXT: trace edema Results Result Diagram: 05/04/17 1138 05/03/17 0725 Results 24 hrs Laboratory Tests Test 05/04/17 11:38 White Blood Count 5.0 Red Blood Count 2.43 L Hemoglobin 8.3 L Hematocrit 25.2 L Mean Corpuscular Volume 103.7 H Mean Corpuscular Hemoglobin 34.2 H Mean Corpuscular Hemoglobin Concent 32.9 Red Cell Distribution Width 17.4 H Platelet Count 227 Mean Platelet Volume 9.9 Neutrophils % 61.4 Lymphocytes % 20.2 Monocytes % 10.0 Eosinophils % 6.4 Basophils % 0.6 Nucleated Red Blood Cells % 0.0 Neutrophils # 3.1 Lymphocytes # 1.0 Monocytes # 0.5 Eosinophils # 0.3 Basophils # 0.0 Nucleated Red Blood Cells # 0.0 Medications Medications Current Medications Ondansetron HCl (Zofran Inj) 4 mg Q6H PRN IV NAUSEA AND/OR VOMITING; Start 04/29/17 at 15:00 Acetaminophen (Tylenol Tab) 650 mg Q6H PRN PO PAIN LEVEL 1-3 OR FEVER Last administered on 05/03/17t 21:01; Admin Dose 650 MG; Start 04/29/17 at 15:00 Acetaminophen (Tylenol Supp) 650 mg Q6H PRN [place] PAIN LEVEL 1-3 OR FEVER; Start 04/29/17 at 15:00 Docusate Sodium (Colace) 100 mg Q12H PRN PO CONSTIPATION; Start 04/29/17 at 15: 00 Magnesium Hydroxide (Milk Of Mag) 30 ml DAILY PRN PO CONSTIPATION; Start at 15:00 Bisacodyl (Dulcolax) 5 mg DAILY PRN PO CONSTIPATION; Start 04/29/17 at 15:00 Famotidine 20 mg 20 mg Q24H IV Last administered on 05/04/17 09:35; Admin Dose 20 MG; Start 04/30/17 at 09:00 Ceftriaxone Sodium (Rocephin) 50 ml @ 100 mls/hr Q24H IVPB Last administered on 05/03/17 16:33; Admin Dose 100 MLS/HR; Start 04/29/17 at 16:00 Isosorbide Mononitrate (Imdur) 30 mg DAILY PO Last administered on 05/04/17 09:37; Admin Dose 30 MG; Start 04/30/17 at 11:00 Clopidogrel Bisulfate (plaVIX) 75 mg DAILY PO Last administered on 05/02/17 08:36; Admin Dose 75 MG; Start 04/30/17 at 11:00; Status Future Hold Metoprolol Tartrate (Lopressor) 12.5 mg BID PO Last administered on 05/04/17 09:36; Admin Dose 12.5 MG; Start 05/02/17 at 21:00 Latanoprost 1 drop 1 drop QHS BOTH EYES Last administered on 05/03/17 21:02; Admin Dose 1 DROP; Start 05/02/17 at 21:00 Levetiracetam/ Dextrose (Keppra Iv/D5W) 107.5 ml @ 430 mls/hr Q12 IVPB ; Start 05/04/17 at 21:00 KANG MI MD May 04, 2017 16:02
[2017-05-04] MEDS: CEFTRIAXONE 1 GM/50 ML (PMX) 50 ML IVPB SCH (16:21)
[2017-05-04] MEDS ORDERED: SOD CHLORIDE 0.9% 250 ML IV* ONE (16:25)
[2017-05-04] MEDS ORDERED: PEG/ELECTROLYTES 4L BTL PO ONE (19:00)
--- NOTE | 2017-05-04 19:50 | CONS ---
Date/Time of Note Date/Time of Note DATE: 05/04/17 TIME: 19:48 Assessment/Plan Assessment/Plan Chief Complaint/Hosp Course SUBJECTIVE: No events overnight. The patient is alert, looks comfortable. Denies pain. She is afebrile. MICROBIOLOGY: Blood and urine culture growing E. coli susceptible to fluoroquinolones. Stool for C. diff came back negative. ANTIMICROBIALS: Rocephin. PHYSICAL EXAMINATION: GENERAL: Fragile, well-developed, elderly woman who is alert, in no distress. HEENT: Head atraumatic, normocephalic. Sclerae anicteric. Buccal mucosa pink. NECK: Supple. CHEST: Rise symmetrical. Breath sounds clear. HEART: S1, S2. ABDOMEN: Soft, bowel tones present. EXTREMITIES: Without cyanosis or edema. ASSESSMENT: 1. Escherichia coli urinary tract infection with bacteremia. 2. Acute anemia. 3. History of seizure disorder. 4. History of aortic valve replacement. 5. History of coronary artery bypass graft. 6. History of hip replacement. PLAN: The patient remains stable. Continue abx, await for cardiac clearance for EGD. Anticipate discharge on oral ciprofloxacin once the patient is ready. F /u repeat blood cultures. DW staff Problems: Consultation Date/Type/Reason Admit Date/Time Apr 29, 2017 at 14:49 Initial Consult Date Type of Consultation: id Referring Provider: IVAN LANDAVERDE MD Exam/Review of Systems Vital Signs Vitals Vital Signs Date Time Temp Pulse Resp B/P Pulse Ox O2 Delivery O2 Flow Rate FiO2 05/04/17 16:26 85 05/04/17 15:57 98.2 18 99/57 96 05/04/17 08:00 Nasal Cannula 2.0 Intake and Output 05/03/17 05/03/17 05/04/17 15:00 23:00 07:00 Intake Total 107.5 ml 800 ml 300 ml Balance 107.5 ml 800 ml 300 ml Results Result Diagram: 05/04/17 1138 05/03/17 0725 Results 24 hrs Laboratory Tests Test 05/04/17 11:38 White Blood Count 5.0 Red Blood Count 2.43 L Hemoglobin 8.3 L Hematocrit 25.2 L Mean Corpuscular Volume 103.7 H Mean Corpuscular Hemoglobin 34.2 H Mean Corpuscular Hemoglobin Concent 32.9 Red Cell Distribution Width 17.4 H Platelet Count 227 Mean Platelet Volume 9.9 Neutrophils % 61.4 Lymphocytes % 20.2 Monocytes % 10.0 Eosinophils % 6.4 Basophils % 0.6 Nucleated Red Blood Cells % 0.0 Neutrophils # 3.1 Lymphocytes # 1.0 Monocytes # 0.5 Eosinophils # 0.3 Basophils # 0.0 Nucleated Red Blood Cells # 0.0 Medications Medications Current Medications Ondansetron HCl (Zofran Inj) 4 mg Q6H PRN IV NAUSEA AND/OR VOMITING; Start 04/29/17 at 15:00 Acetaminophen (Tylenol Tab) 650 mg Q6H PRN PO PAIN LEVEL 1-3 OR FEVER Last administered on 05/03/17 21:01; Admin Dose 650 MG; Start 04/29/17 at 15:00 Acetaminophen (Tylenol Supp) 650 mg Q6H PRN [place] PAIN LEVEL 1-3 OR FEVER; Start 04/29/17 at 15:00 Docusate Sodium (Colace) 100 mg Q12H PRN PO CONSTIPATION; Start 04/29/17 at 15: 00 Magnesium Hydroxide (Milk Of Mag) 30 ml DAILY PRN PO CONSTIPATION; Start at 15:00 Bisacodyl (Dulcolax) 5 mg DAILY PRN PO CONSTIPATION; Start 04/29/17 at 15:00 Famotidine 20 mg 20 mg Q24H IV Last administered on 05/04/17 09:35; Admin Dose 20 MG; Start 04/30/17 at 09:00 Ceftriaxone Sodium (Rocephin) 50 ml @ 100 mls/hr Q24H IVPB Last administered on 05/04/17 16:21; Admin Dose 100 MLS/HR; Start 04/29/17 at 16:00 Isosorbide Mononitrate (Imdur) 30 mg DAILY PO Last administered on 05/04/17 09:37; Admin Dose 30 MG; Start 04/30/17 at 11:00 Clopidogrel Bisulfate (plaVIX) 75 mg DAILY PO Last administered on 05/02/17 08:36; Admin Dose 75 MG; Start 04/30/17 at 11:00; Status Future Hold Metoprolol Tartrate (Lopressor) 12.5 mg BID PO Last administered on 05/04/17 09:36; Admin Dose 12.5 MG; Start 05/02/17 at 21:00 Latanoprost 1 drop 1 drop QHS BOTH EYES Last administered on 05/03/17t 21:02; Admin Dose 1 DROP; Start 05/02/17 at 21:00 Levetiracetam/ Dextrose (Keppra Iv/D5W) 107.5 ml @ 430 mls/hr Q12 IVPB ; Start 05/04/17 at 21:00 CHIQUI LIGHT NP May 04, 2017 19:50
[2017-05-04 20:03] LABS: INR 0.95; PROTIME 12.8 Sec (11.9-14.9)
[2017-05-04 20:04] LABS: PARTIAL THROMBOPLASTIN TIME 30.5 Sec (25.0-35.0)
[2017-05-04] MEDS: LATANOPROST 0.005% 2.5 ML OPH BOTH EYES SCH (21:36)
[2017-05-05] VITALS (19 sets, daily range): BP systolic 112–145; BP diastolic 57–91; PULSE 79–100; RESP 16–28
--- NOTE | 2017-05-05 06:28 | PN ---
DATE: 05/04/2017 CHIEF COMPLAINT: At this time, the patient has no significant complaints; however, she is admitted with severe anemia with hemoglobin 6.8. She has no history of vomiting blood or passing blood from the rectum. The etiology of anemia is not very clear. PHYSICAL EXAMINATION: ABDOMEN: Unremarkable. VITAL SIGNS: Unremarkable. Blood pressure 99/57. LABORATORY WORKUP: The latest hemoglobin is 8.3. She is supposed to receive 1 unit of packed cells . The patient has elevated troponin level. She is seen by drawing in machine tender helper. I discussed with cardiologis t and he believes that there is some risk involved in doing upper endoscopy, lower endoscopy, but he says the risk is very minimal. Rule out peptic ulcer disease. PLAN: At this time, we will proceed with upper endoscopy for the time being, and we will decide abo ut colonoscopy at a later time. Dictated By: DEBBIE BRIDGES/REYNALDO Conf#: [id number] DID#: [id number] CC: AZAR TA;*EndCC*
[2017-05-05] MEDS: LEVETIRACETAM IV 750 MG in DEXTROSE 5% 100 ML IVPB SCH (08:50)
[2017-05-05] MEDS: METOPROLOL 25 MG TAB PO SCH ×2 (08:50→21:06)
[2017-05-05] MEDS: ISOSORBIDE MONONITRATE(SR)30 MG TAB PO SCH (08:50)
[2017-05-05] MEDS: FAMOTIDINE 20 MG INJ IV SCH (08:50)
[2017-05-05 09:09] LABS: BASOPHILS % 0.6 % (0.0-2.0); EOSINOPHILS # 0.3 10^3/ul (0.0-0.5); EOSINOPHILS % 5.2 % (0.0-7.0); HEMATOCRIT 30.7 % (37.0-47.0); HEMOGLOBIN 10.4 g/dl (12.0-16.0); LYMPHOCYTES # 1.6 10^3/ul (0.8-2.9); MEAN CORPUSCULAR HEMOGLOBIN 32.8 pg (29.0-33.0); MEAN CORPUSCULAR HGB CONC 33.9 g/dl (32.0-37.0); MEAN CORPUSCULAR VOLUME 96.8 fl (82.0-101.0); MEAN PLATELET VOLUME 10.1 fl (7.4-10.4); MONOCYTE # 0.7 10^3/ul (0.3-0.9); MONOCYTES % 10.6 % (0.0-11.0); NEUTROPHIL # 3.6 10^3/ul (1.6-7.5); NEUTROPHILS % 56.7 % (39.0-77.0); PLATELET COUNT 224 10^3/UL (140-415); RED BLOOD COUNT 3.17 10^6/ul (4.20-5.40); RED CELL DISTRIBUTION WIDTH 17.9 % (11.5-14.5); WHITE BLOOD COUNT 6.3 10^3/ul (4.8-10.8)
[2017-05-05 09:28] LABS: CALCIUM 9.2 mg/dl (8.4-10.2); CREATININE 1.05 mg/dl (0.44-1.00); POTASSIUM 4.1 mmol/L (3.5-5.1)
[2017-05-05 09:34] LABS: MAGNESIUM 1.9 mg/dl (1.7-2.5); PHOSPHORUS 3.6 mg/dl (2.5-4.9)
--- NOTE | 2017-05-05 12:08 | OPPN ---
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
--- NOTE | 2017-05-05 13:25 | CONS ---
Date/Time of Note Date/Time of Note DATE: 05/05/17 TIME: 13:22 Assessment/Plan Assessment/Plan Additional Assessment/Plan 1. PRE-op: pt had CABG in 2007 and TAVR at [facility] 04/2016 - pt had LHC pre-TAVR, per daughter - it was normal. Per family, pt had EGD in July of 2016 in [place] - tolerated well - I think pt is moderate to high risk for any procedure - I spoke with family, do not think Stress test will change therapy - advise blood transfusion and EGD/colonoscopy per GI team as tolerated - family aware of increased risk This was discussed with GI team and Primary. Pt tolerated procedure well - will monitor clinically. Outpt f/up with primary cardiology advised. 2. Chest pain-Currently improved - med rx to follow for now. NO CP now. No Sx now. 3. h/o TAVR - stable. 4.? H/O Cabg - no CP now - top be monitored 5.anemia-severe - blood Tx to follow 6. H/O hip replacement 7. Bacteremia-E Coli/urosepsis - on anti-Bx 8. UTI-E Coli - on ati-bx. Consultation Date/Type/Reason Admit Date/Time Apr 29, 2017 at 14:49 Type of Consultation: id Referring Provider: IVAN LANDAVERDE MD 24 HR Interval Summary Free Text/Dictation Pt tolerated procedure well - will monitor clinically. Outpt f/up with primary cardiology advised. ROS: No fever, no chills, no nausea, no vomiting, no diarrhea/constipation No recent weight changes No chest pain, no PND, no orthopnea No dizziness, blurred vision No thirst, no heat or cold intolerance Exam/Review of Systems Vital Signs Vitals Vital Signs Date Time Temp Pulse Resp B/P Pulse Ox O2 Delivery O2 Flow Rate FiO2 05/05/17 13:09 93 05/05/17 12:10 98.2 17 118/70 99 Nasal Cannula 2.0 Intake and Output 05/04/17 05/04/17 05/05/17 15:00 23:00 07:00 Intake Total 50 ml 750 ml 300 ml Balance 50 ml 750 ml 300 ml Exam General: WN/WD/NAD, AOx 2-3 more alert HEENT: Unicetric/atraumatic/EOMI (follows commands) NECK: JVD elevated, no thyromegaly Lymph: no lymphadenopathy HEART: regular with no S3, II/ systolic murmur at apex LUNGS: Coarse sounds ABD: soft, NT, ND, +BS : Intact Neuro: non focal SKIN: chronic changes EXT: trace edema Results Result Diagram: 05/05/1782705/05/17827 Results 24 hrs Laboratory Tests Test 05/04/17 19:21 05/05/17 08:28 Prothrombin Time 12.8 Prothrombin Time Ratio 1.0 INR International Normalized Ratio 0.95 Activated Partial Thromboplast Time 30.5 White Blood Count 6.3 # Red Blood Count 3.17 #L Hemoglobin 10.4 #L Hematocrit 30.7 #L Mean Corpuscular Volume 96.8 Mean Corpuscular Hemoglobin 32.8 Mean Corpuscular Hemoglobin Concent 33.9 Red Cell Distribution Width 17.9 H Platelet Count 224 Mean Platelet Volume 10.1 Neutrophils % 56.7 Lymphocytes % 25.0 Monocytes % 10.6 Eosinophils % 5.2 Basophils % 0.6 Nucleated Red Blood Cells % 0.0 Neutrophils # 3.6 Lymphocytes # 1.6 Monocytes # 0.7 Eosinophils # 0.3 Basophils # 0.0 Nucleated Red Blood Cells # 0.0 Sodium Level 142 Potassium Level 4.1 Chloride Level 106 Carbon Dioxide Level 29 Anion Gap 11 Blood Urea Nitrogen 16 Creatinine 1.05 H Glucose Level 95 Calcium Level 9.2 Phosphorus Level 3.6 Magnesium Level 1.9 Medications Medications Current Medications Ondansetron HCl (Zofran Inj) 4 mg Q6H PRN IV NAUSEA AND/OR VOMITING; Start 04/29/17 at 15:00 Acetaminophen (Tylenol Tab) 650 mg Q6H PRN PO PAIN LEVEL 1-3 OR FEVER Last administered on 05/03/17t 21:01; Admin Dose 650 MG; Start 04/29/17 at 15:00 Acetaminophen (Tylenol Supp) 650 mg Q6H PRN NM PAIN LEVEL 1-3 OR FEVER; Start 04/29/17 at 15:00 Docusate Sodium (Colace) 100 mg Q12H PRN PO CONSTIPATION; Start 04/29/17 at 15: 00 Magnesium Hydroxide (Milk Of Mag) 30 ml DAILY PRN PO CONSTIPATION; Start at 15:00 Bisacodyl (Dulcolax) 5 mg DAILY PRN PO CONSTIPATION; Start 04/29/17 at 15:00 Famotidine 20 mg 20 mg Q24H IV Last administered on 05/05/17 08:50; Admin Dose 20 MG; Start 04/30/17 at 09:00 Ceftriaxone Sodium (Rocephin) 50 ml @ 100 mls/hr Q24H IVPB Last administered on 05/04/17 16:21; Admin Dose 100 MLS/HR; Start 04/29/17 at 16:00 Isosorbide Mononitrate (Imdur) 30 mg DAILY PO Last administered on 05/04/17 09:37; Admin Dose 30 MG; Start 04/30/17 at 11:00 Clopidogrel Bisulfate (plaVIX) 75 mg DAILY PO Last administered on 05/02/17 08:36; Admin Dose 75 MG; Start 04/30/17 at 11:00; Status Future Hold Metoprolol Tartrate (Lopressor) 12.5 mg BID PO Last administered on 05/04/17 21:36; Admin Dose 12.5 MG; Start 05/02/17 at 21:00 Latanoprost 1 drop 1 drop QHS BOTH EYES Last administered on 05/04/17 21:36; Admin Dose 1 DROP; Start 05/02/17 at 21:00 Levetiracetam/ Dextrose (Keppra Iv/D5W) 107.5 ml @ 430 mls/hr Q12 IVPB Last administered on 05/05/17 08:50; Admin Dose 430 MLS/HR; Start 05/04/17 at 21: 00 KANG MI MD May 05, 2017 13:25
[2017-05-05] MEDS: CEFTRIAXONE 1 GM/50 ML (PMX) 50 ML IVPB SCH (16:31)
--- NOTE | 2017-05-05 16:43 | PN ---
Date/Time of Note Date/Time of Note DATE: 05/05/17 TIME: 16:41 Assessment/Plan VTE Prophylaxis VTE Prophylaxis Intervention: SCD's Lines/Catheters IV [facility] Urinary Cath still in place: No Assessment/Plan Chief Complaint/Hosp Course 86 y.o with # Sepsis better due to Ecoli Uti and Ecoli bacterimia, repeat bld cx negative so far # Ecoli UTI # Elevated troponin in setting of TAVR and s/p CABG, first part stress negative # hx GI bleed on plavix now anemic s/p EGD with ulcer #. S/p right hip arthroplasty at [facility] # . Hyponatremia resolved #. acute kidney injury, with possible underlying chronic kidney disease, #. history of gastrointestinal bleed # history of coronary artery bypass graft #. history of seizure disorder. #. Status post percutaneous aortic valve placement Recs - c/w Rocephin, repeat bld cx negative so far - EGD with ulcer + PPI, Full liquid diet - Follow H/H improved - Will ask cards about restarting plavix - on imdur/MTP per cards - No blood thinners - PT - ARU vs SNIF Problems: Subjective 24 Hr Interval Summary Free Text/Dictation S/P EGD with ulcer at upper esopahgus S/P 1 unit PRBC yesterday Exam/Review of Systems Vital Signs Vitals Vital Signs Date Time Temp Pulse Resp B/P Pulse Ox O2 Delivery O2 Flow Rate FiO2 05/05/17 16:18 86 05/05/17 16:00 98.2 17 136/73 95 05/05/17 12:10 Nasal Cannula 2.0 Intake and Output 05/04/17 05/04/17 05/05/17 15:00 23:00 07:00 Intake Total 50 ml 750 ml 300 ml Balance 50 ml 750 ml 300 ml Exam EENT: mucosa pink and moist Neck: jvd (9 cm water), supple Respiratory: clear to auscultation Cardiovascular: regular rate and rhythm Gastrointestinal: non-tender, soft Extremities: Left hip s/p surgery, slight warm Neurological: (No focal deficits) Results Result Diagram: 05/05/1728 05/05/1728 Results 24 hrs Laboratory Tests Test 05/04/17 19:21 05/05/17 08:28 Prothrombin Time 12.8 Prothrombin Time Ratio 1.0 INR International Normalized Ratio 0.95 Activated Partial Thromboplast Time 30.5 White Blood Count 6.3 # Red Blood Count 3.17 #L Hemoglobin 10.4 #L Hematocrit 30.7 #L Mean Corpuscular Volume 96.8 Mean Corpuscular Hemoglobin 32.8 Mean Corpuscular Hemoglobin Concent 33.9 Red Cell Distribution Width 17.9 H Platelet Count 224 Mean Platelet Volume 10.1 Neutrophils % 56.7 Lymphocytes % 25.0 Monocytes % 10.6 Eosinophils % 5.2 Basophils % 0.6 Nucleated Red Blood Cells % 0.0 Neutrophils # 3.6 Lymphocytes # 1.6 Monocytes # 0.7 Eosinophils # 0.3 Basophils # 0.0 Nucleated Red Blood Cells # 0.0 Sodium Level 142 Potassium Level 4.1 Chloride Level 106 Carbon Dioxide Level 29 Anion Gap 11 Blood Urea Nitrogen 16 Creatinine 1.05 H Glucose Level 95 Calcium Level 9.2 Phosphorus Level 3.6 Magnesium Level 1.9 Medications Medications Current Medications Ondansetron HCl (Zofran Inj) 4 mg Q6H PRN IV NAUSEA AND/OR VOMITING; Start 04/29/17 at 15:00 Acetaminophen (Tylenol Tab) 650 mg Q6H PRN PO PAIN LEVEL 1-3 OR FEVER Last administered on 05/03/17 21:01; Admin Dose 650 MG; Start 04/29/17 at 15:00 Acetaminophen (Tylenol Supp) 650 mg Q6H PRN DC PAIN LEVEL 1-3 OR FEVER; Start 04/29/17 at 15:00 Docusate Sodium (Colace) 100 mg Q12H PRN PO CONSTIPATION; Start 04/29/17 at 15: 00 Magnesium Hydroxide (Milk Of Mag) 30 ml DAILY PRN PO CONSTIPATION; Start at 15:00 Bisacodyl (Dulcolax) 5 mg DAILY PRN PO CONSTIPATION; Start 04/29/17 at 15:00 Famotidine 20 mg 20 mg Q24H IV Last administered on 05/05/17 08:50; Admin Dose 20 MG; Start 04/30/17 at 09:00 Ceftriaxone Sodium (Rocephin) 50 ml @ 100 mls/hr Q24H IVPB Last administered on 05/05/17 16:31; Admin Dose 100 MLS/HR; Start 04/29/17 at 16:00 Isosorbide Mononitrate (Imdur) 30 mg DAILY PO Last administered on 05/04/17 09:37; Admin Dose 30 MG; Start 04/30/17 at 11:00 Clopidogrel Bisulfate (plaVIX) 75 mg DAILY PO Last administered on 05/02/17 08:36; Admin Dose 75 MG; Start 04/30/17 at 11:00; Status Future Hold Metoprolol Tartrate (Lopressor) 12.5 mg BID PO Last administered on 05/04/17 21:36; Admin Dose 12.5 MG; Start 05/02/17 at 21:00 Latanoprost 1 drop 1 drop QHS BOTH EYES Last administered on 05/04/17 21:36; Admin Dose 1 DROP; Start 05/02/17 at 21:00 Levetiracetam/ Dextrose (Keppra Iv/D5W) 107.5 ml @ 430 mls/hr Q12 IVPB Last administered on 05/05/17 08:50; Admin Dose 430 MLS/HR; Start 05/04/17 at 21: 00 AZAR TA MD May 05, 2017 16:43
[2017-05-05] MEDS: LEVETIRACETAM 750 MG TAB PO SCH (21:05)
[2017-05-05] MEDS: LATANOPROST 0.005% 2.5 ML OPH BOTH EYES SCH (21:05)
--- NOTE | 2017-05-05 21:48 | CONS ---
Date/Time of Note Date/Time of Note DATE: 05/05/17 TIME: 21:46 Assessment/Plan Assessment/Plan Chief Complaint/Hosp Course SUBJECTIVE: No events overnight. The patient is alert, looks comfortable. Denies pain. No fevers MICROBIOLOGY: Blood and urine culture growing E. coli susceptible to fluoroquinolones. Stool for C. diff came back negative. ANTIMICROBIALS: Rocephin. PHYSICAL EXAMINATION: GENERAL: Fragile, well-developed, elderly woman who is alert, in no distress. HEENT: Head atraumatic, normocephalic. Sclerae anicteric. Buccal mucosa pink. NECK: Supple. CHEST: Rise symmetrical. Breath sounds clear. HEART: S1, S2. ABDOMEN: Soft, bowel tones present. EXTREMITIES: Without cyanosis or edema. ASSESSMENT: 1. Escherichia coli urinary tract infection with bacteremia. 2. Acute anemia==> esophagitis per EGD. 3. History of seizure disorder. 4. History of aortic valve replacement. 5. History of coronary artery bypass graft. 6. History of hip replacement. PLAN: The patient remains stable. Repeat bld cx negative, ok dc on PO Cipro for 8 more days when medically cleared DW staff Problems: Consultation Date/Type/Reason Admit Date/Time Apr 29, 2017 at 14:49 Type of Consultation: id Referring Provider: IVAN LANDAVERDE MD Exam/Review of Systems Vital Signs Vitals Vital Signs Date Time Temp Pulse Resp B/P Pulse Ox O2 Delivery O2 Flow Rate FiO2 05/05/17 20:00 98.2 93 19 112/64 96 05/05/17 12:35 Nasal Cannula 2.0 Intake and Output 05/04/17 05/04/17 05/05/17 15:00 23:00 07:00 Intake Total 50 ml 750 ml 300 ml Balance 50 ml 750 ml 300 ml Results Result Diagram: 05/05/17 0828 05/05/17 0828 Results 24 hrs Laboratory Tests Test 05/05/17 08:28 White Blood Count 6.3 # Red Blood Count 3.17 #L Hemoglobin 10.4 #L Hematocrit 30.7 #L Mean Corpuscular Volume 96.8 Mean Corpuscular Hemoglobin 32.8 Mean Corpuscular Hemoglobin Concent 33.9 Red Cell Distribution Width 17.9 H Platelet Count 224 Mean Platelet Volume 10.1 Neutrophils % 56.7 Lymphocytes % 25.0 Monocytes % 10.6 Eosinophils % 5.2 Basophils % 0.6 Nucleated Red Blood Cells % 0.0 Neutrophils # 3.6 Lymphocytes # 1.6 Monocytes # 0.7 Eosinophils # 0.3 Basophils # 0.0 Nucleated Red Blood Cells # 0.0 Sodium Level 142 Potassium Level 4.1 Chloride Level 106 Carbon Dioxide Level 29 Anion Gap 11 Blood Urea Nitrogen 16 Creatinine 1.05 H Glucose Level 95 Calcium Level 9.2 Phosphorus Level 3.6 Magnesium Level 1.9 Medications Medications Current Medications Ondansetron HCl (Zofran Inj) 4 mg Q6H PRN IV NAUSEA AND/OR VOMITING; Start 04/29/17 at 15:00 Acetaminophen (Tylenol Tab) 650 mg Q6H PRN PO PAIN LEVEL 1-3 OR FEVER Last administered on 05/03/17 21:01; Admin Dose 650 MG; Start 04/29/17 at 15:00 Acetaminophen (Tylenol Supp) 650 mg Q6H PRN ME PAIN LEVEL 1-3 OR FEVER; Start 04/29/17 at 15:00 Docusate Sodium (Colace) 100 mg Q12H PRN PO CONSTIPATION; Start 04/29/17 at 15: 00 Magnesium Hydroxide (Milk Of Mag) 30 ml DAILY PRN PO CONSTIPATION; Start at 15:00 Bisacodyl (Dulcolax) 5 mg DAILY PRN PO CONSTIPATION; Start 04/29/17 at 15:00 Famotidine 20 mg 20 mg Q24H IV Last administered on 05/05/17 08:50; Admin Dose 20 MG; Start 04/30/17 at 09:00 Ceftriaxone Sodium (Rocephin) 50 ml @ 100 mls/hr Q24H IVPB Last administered on 05/05/17 16:31; Admin Dose 100 MLS/HR; Start 04/29/17 at 16:00 Isosorbide Mononitrate (Imdur) 30 mg DAILY PO Last administered on 05/04/17 09:37; Admin Dose 30 MG; Start 04/30/17 at 11:00 Clopidogrel Bisulfate (plaVIX) 75 mg DAILY PO Last administered on 05/02/17 08:36; Admin Dose 75 MG; Start 04/30/17 at 11:00; Status Future Hold Metoprolol Tartrate (Lopressor) 12.5 mg BID PO Last administered on 05/05/17 21:06; Admin Dose 12.5 MG; Start 05/02/17 at 21:00 Latanoprost (Xalatan) 1 drop QHS BOTH EYES Last administered on 05/05/17 21: 05; Admin Dose 1 DROP; Start 05/02/17 at 21:00 Levetiracetam (Keppra) 750 mg BID PO Last administered on 05/05/17 21:05; Admin Dose 750 MG; Start 05/05/17 at 21:00 CHIQUI LIGHT NP May 05, 2017 21:48
[2017-05-06] VITALS (10 sets, daily range): BP systolic 98–121; BP diastolic 56–71; PULSE 72–81; RESP 18–20
[2017-05-06 07:55] LABS: BASOPHILS % 0.6 % (0.0-2.0); EOSINOPHILS # 0.3 10^3/ul (0.0-0.5); HEMATOCRIT 30.9 % (37.0-47.0); HEMOGLOBIN 10.2 g/dl (12.0-16.0); LYMPHOCYTES # 1.2 10^3/ul (0.8-2.9); LYMPHOCYTES % 18.5 % (15.0-51.0); MEAN CORPUSCULAR HEMOGLOBIN 32.6 pg (29.0-33.0); MEAN CORPUSCULAR VOLUME 98.7 fl (82.0-101.0); MEAN PLATELET VOLUME 9.7 fl (7.4-10.4); MONOCYTE # 0.7 10^3/ul (0.3-0.9); MONOCYTES % 10.6 % (0.0-11.0); NEUTROPHILS % 64.5 % (39.0-77.0); PLATELET COUNT 236 10^3/UL (140-415); RED BLOOD COUNT 3.13 10^6/ul (4.20-5.40); RED CELL DISTRIBUTION WIDTH 18.1 % (11.5-14.5); WHITE BLOOD COUNT 6.2 10^3/ul (4.8-10.8)
[2017-05-06 08:17] LABS: CALCIUM 9.1 mg/dl (8.4-10.2); CREATININE 0.93 mg/dl (0.44-1.00)
[2017-05-06 08:19] LABS: PHOSPHORUS 3.4 mg/dl (2.5-4.9)
[2017-05-06] MEDS: FAMOTIDINE 20 MG INJ IV SCH (08:36)
[2017-05-06] MEDS: LEVETIRACETAM 750 MG TAB PO SCH (08:37)
[2017-05-06] MEDS: ISOSORBIDE MONONITRATE(SR)30 MG TAB PO SCH (08:37)
[2017-05-06] MEDS: METOPROLOL 25 MG TAB PO SCH (08:37)
--- NOTE | 2017-05-06 14:29 | PDOCDIS ---
Discharge Instructions CONDITION Patient Condition: Stable HOME CARE INSTRUCTIONS: Diet Instructions: Reduced SodiumSpecial Diet: FULL LIQUID ACTIVITY: Activity Restrictions: Slowly Increase Activity Bathing Restrictions: Shower FOLLOW UP/APPOINTMENTS Follow-up Plan PCP 1 week REFERRALS Other Referrals PT TRAVIS SCHWARZ May 06, 2017 14:29
[2017-05-06] MEDS ORDERED: METO-448 PO (14:31)
--- NOTE | 2017-05-06 14:33 | CONS ---
Date/Time of Note Date/Time of Note DATE: 05/06/17 TIME: 14:32 Assessment/Plan Assessment/Plan Chief Complaint/Hosp Course SUBJECTIVE: No events overnight. The patient is alert, looks comfortable. Denies pain. No fevers MICROBIOLOGY: Blood and urine culture growing E. coli susceptible to fluoroquinolones. Stool for C. diff came back negative. ANTIMICROBIALS: Rocephin. PHYSICAL EXAMINATION: GENERAL: Fragile, well-developed, elderly woman who is alert, in no distress. HEENT: Head atraumatic, normocephalic. Sclerae anicteric. Buccal mucosa pink. NECK: Supple. CHEST: Rise symmetrical. Breath sounds clear. HEART: S1, S2. ABDOMEN: Soft, bowel tones present. EXTREMITIES: Without cyanosis or edema. ASSESSMENT: 1. Escherichia coli urinary tract infection with bacteremia. 2. Acute anemia==> s/p EGD. 3. History of seizure disorder. 4. History of aortic valve replacement. 5. History of coronary artery bypass graft. 6. Marnie esophagitis. PLAN: The patient remains stable. Repeat bld cx negative, will add Diflucan for marnie esophagitis, change abx to oral Cipro in am to complete 7 more days DW family Problems: Consultation Date/Type/Reason Admit Date/Time Apr 29, 2017 at 14:49 Type of Consultation: id Referring Provider: IVAN LANDAVERDE MD Exam/Review of Systems Vital Signs Vitals Vital Signs Date Time Temp Pulse Resp B/P Pulse Ox O2 Delivery O2 Flow Rate FiO2 05/06/17 12:18 76 05/06/17 11:34 98.4 20 98/56 96 05/05/17 20:00 Nasal Cannula 2.0 Intake and Output 05/05/17 05/05/17 05/06/17 15:00 23:00 07:00 Intake Total 400 ml 300 ml Output Total 650 ml Balance -250 ml 300 ml Results Result Diagram: 05/06/17 0707 05/06/17 0707 Results 24 hrs Laboratory Tests Test 05/06/17 07:07 White Blood Count 6.2 Red Blood Count 3.13 L Hemoglobin 10.2 L Hematocrit 30.9 L Mean Corpuscular Volume 98.7 Mean Corpuscular Hemoglobin 32.6 Mean Corpuscular Hemoglobin Concent 33.0 Red Cell Distribution Width 18.1 H Platelet Count 236 Mean Platelet Volume 9.7 Neutrophils % 64.5 Lymphocytes % 18.5 Monocytes % 10.6 Eosinophils % 4.0 Basophils % 0.6 Nucleated Red Blood Cells % 0.0 Neutrophils # 4.0 Lymphocytes # 1.2 Monocytes # 0.7 Eosinophils # 0.3 Basophils # 0.0 Nucleated Red Blood Cells # 0.0 Sodium Level 142 Potassium Level 4.0 Chloride Level 105 Carbon Dioxide Level 29 Anion Gap 12 Blood Urea Nitrogen 13 Creatinine 0.93 Glucose Level 91 Calcium Level 9.1 Phosphorus Level 3.4 Magnesium Level 2.0 Medications Medications Current Medications Ondansetron HCl (Zofran Inj) 4 mg Q6H PRN IV NAUSEA AND/OR VOMITING; Start 04/29/17 at 15:00 Acetaminophen (Tylenol Tab) 650 mg Q6H PRN PO PAIN LEVEL 1-3 OR FEVER Last administered on 05/03/17 21:01; Admin Dose 650 MG; Start 04/29/17 at 15:00 Acetaminophen (Tylenol Supp) 650 mg Q6H PRN MD PAIN LEVEL 1-3 OR FEVER; Start 04/29/17 at 15:00 Docusate Sodium (Colace) 100 mg Q12H PRN PO CONSTIPATION; Start 04/29/17 at 15: 00 Magnesium Hydroxide (Milk Of Mag) 30 ml DAILY PRN PO CONSTIPATION; Start at 15:00 Bisacodyl (Dulcolax) 5 mg DAILY PRN PO CONSTIPATION; Start 04/29/17 at 15:00 Famotidine 20 mg 20 mg Q24H IV Last administered on 05/06/17 08:36; Admin Dose 20 MG; Start 04/30/17 at 09:00 Ceftriaxone Sodium (Rocephin) 50 ml @ 100 mls/hr Q24H IVPB Last administered on 05/05/17 16:31; Admin Dose 100 MLS/HR; Start 04/29/17 at 16:00 Isosorbide Mononitrate (Imdur) 30 mg DAILY PO Last administered on 05/06/17 08:37; Admin Dose 30 MG; Start 04/30/17 at 11:00 Clopidogrel Bisulfate (plaVIX) 75 mg DAILY PO Last administered on 05/02/17 08:36; Admin Dose 75 MG; Start 04/30/17 at 11:00; Status Future Hold Metoprolol Tartrate (Lopressor) 12.5 mg BID PO Last administered on 05/06/17 08:37; Admin Dose 12.5 MG; Start 05/02/17 at 21:00 Latanoprost (Xalatan) 1 drop QHS BOTH EYES Last administered on 05/05/17 21: 05; Admin Dose 1 DROP; Start 05/02/17 at 21:00 Levetiracetam (Keppra) 750 mg BID PO Last administered on 05/06/17 08:37; Admin Dose 750 MG; Start 05/05/17 at 21:00 CHIQUI LIGHT NP May 06, 2017 14:33
[2017-05-06] MEDS ORDERED: [UNRECOGNIZED DRUG - CODE] PO (14:34)
--- NOTE | 2017-05-06 14:35 | DS ---
Date/Time of Note Date/Time of Note DATE: 05/06/17 TIME: 14:34 Discharge Summary Admission/Discharge Info Admit Date/Time Apr 29, 2017 at 14:49 Discharge Date/Time Discharge Diagnosis SIRS Patient Condition: Stable Consults Dr kumar,ID specialist, dr Toro, cardiology, dr Sal GI Procedures EGD Hospital Course The patient is an elderly female with history of TAVR, history of seizure disorder, history of femur fracture and repair, recently discharged from hospital, presented with temperature 101.2, pulse 121, blood pressure 117/50, and respirations 20. The patient has been admitted for systemic inflammatory response syndrome and UTI. Impressions: 1. Systemic inflammatory response syndrome, better. 2. S/p right hip arthroplasty at [facility] 3. urinary tract infection, 4.Positive troponin, 5. Hyponatremia, 6. acute kidney injury, with possible underlying chronic kidney disease, 7. history of gastrointestinal bleed, ulcer at upper esophagus 8. history of coronary artery bypass graft 9. history of seizure disorder. 10. Status post percutaneous aortic valve placement 11. Anemia 12. CHF during hospitalization pt receieved a cource of a/b, she underwent EGD to find a reason for anemia. She was continued with PT. Pt condition was stable a nd she was d/c home with PT and medications. Home Meds Active Scripts Fluconazole* (Fluconazole*) 100 Mg Tablet, 100 MG PO DAILY for 7 Days, TAB Prov:AZAR TA MD 05/06/17 Wheelchair (Wheelchair) 1 Each Each, 1 EACH MC ONCE Y for MODERATE PAIN LEVEL 4- 6, #1 0 Refills Prov:TRAVIS SCHWARZ 05/06/17 Ciprofloxacin Hcl* (Ciprofloxacin Hcl*) 500 Mg Tablet, 500 MG PO BID for 7 Days , #14 TAB Prov:TRAVIS SCHWARZ 05/06/17 Megestrol Acetate* (Megace ES*) 625 Mg/5 Ml Oral.susp, 625 MG PO DAILY for 10 Days, ML Prov:TRAVIS SCHWARZ 05/06/17 Metoprolol Tartrate* (Lopressor*) 25 Mg Tab, 12.5 MG PO BID for 30 Days, TAB Prov:TRAVIS SCHWARZ 05/06/17 Reported Medications Simvastatin* (Zocor*) 10 Mg Tablet, 10 MG PO QHS, #30 TAB 04/29/17 Pantoprazole* (Pantoprazole*) 40 Mg Tablet.dr, 40 MG PO AC BREAKFAST, TAB 04/29/17 Levetiracetam* (Keppra*) 750 Mg Tablet, 750 MG PO BID, TAB 04/29/17 Latanoprost (Latanoprost) 2.5 Ml Drops, 1 DROP BOTH EYES QHS, #1 BOTTLE 04/29/17 Calcium Carbonate ([id number]) 500 Mg Tablet, 500 MG PO BID, TAB 04/29/17 Alendronate Sodium* (Fosamax*) 70 Mg Tablet, 70 MG PO Q7D, #4 TAB 04/29/17 Discontinued Reported Medications Metoprolol Succinate* (Toprol XL*) 25 Mg Tab.sr.24h, 25 MG PO DAILY, #30 TAB 04/29/17 Lisinopril* (Lisinopril*) 2.5 Mg Tablet, 2.5 MG PO DAILY, #30 TAB 04/29/17 Acetaminophen with Codeine (Acetaminophen-Cod #3 Tablet) 1 Each Tablet, 1 TAB PO Q4 Y for PAIN, #7 TAB 04/29/17 Follow-up Plan PCP 1 week Primary Care Provider Lizzeth White Time spent on discharge: < 30 minutes Pending Labs Laboratory Tests Test 05/06/17 07:07 White Blood Count 6.210^3/ul (4.8-10.8) Red Blood Count 3.1310^6/ul (4.20-5.40) Hemoglobin 10.2g/dl (12.0-16.0) Hematocrit 30.9% (37.0-47.0) Mean Corpuscular Volume 98.7fl (82.0-101.0) Mean Corpuscular Hemoglobin 32.6pg (29.0-33.0) Mean Corpuscular Hemoglobin Concent 33.0g/dl (32.0-37.0) Red Cell Distribution Width 18.1% (11.5-14.5) Platelet Count 44872^3/UL (140-415) Mean Platelet Volume 9.7fl (7.4-10.4) Neutrophils % 64.5% (39.0-77.0) Lymphocytes % 18.5% (15.0-51.0) Monocytes % 10.6% (0.0-11.0) Eosinophils % 4.0% (0.0-7.0) Basophils % 0.6% (0.0-2.0) Nucleated Red Blood Cells % 0.0/100WBC (0.0-0.0) Neutrophils # 4.010^3/ul (1.6-7.5) Lymphocytes # 1.210^3/ul (0.8-2.9) Monocytes # 0.710^3/ul (0.3-0.9) Eosinophils # 0.310^3/ul (0.0-0.5) Basophils # 0.010^3/ul (0.0-0.1) Nucleated Red Blood Cells # 0.010^3/ul (0.0-0.0) Sodium Level 142mmol/L (135-144) Potassium Level 4.0mmol/L (3.5-5.1) Chloride Level 105mmol/L (97-110) Carbon Dioxide Level 29mmol/L (21-31) Anion Gap 12 (8-16) Blood Urea Nitrogen 13mg/dl (7-20) Creatinine 0.93mg/dl (0.44-1.00) Glucose Level 91mg/dl (70-220) Calcium Level 9.1mg/dl (8.4-10.2) Phosphorus Level 3.4mg/dl (2.5-4.9) Magnesium Level 2.0mg/dl (1.7-2.5) TRAVIS SCHWARZ May 06, 2017 14:35
[2017-05-06] MEDS ORDERED: CIPR500T4 PO (14:39)
[2017-05-06] MEDS ORDERED: FLUCONAZOLE 100 MG TAB PO ONE (15:00)
[2017-05-06] MEDS ORDERED: WHEE1EAC3 MC (15:02)
--- NOTE | 2017-05-06 15:05 | GILP ---
DATE OF PROCEDURE: 05/05/2017 PROCEDURE PERFORMED: Esophagogastroduodenoscopy. PREOPERATIVE DIAGNOSIS: Rule out peptic ulcer disease, gastric arteriovenous malformation, etc. The patient has a history of severe anemia with hemoglobin between 6 and 7 grams. POSTOPERATIVE DIAGNOSES: Patchy gastritis, minimal reflux esophagitis. The duodenum appeared parker l. DESCRIPTION OF PROCEDURE: After informed written consent was obtained, the patient was asked to lie on the left lateral side. Intravenous anesthesia was given by anesthesiologist, Dr. Bains. When the patient became somnolent, the Olympus video upper endoscope was introduced into the oropharynx, then into the esophagus. The esophagus showed minimal reflux esophagitis. Scope at this time was a dvanced into the stomach. The stomach showed evidence of minimal erythema in the antrum and the mid body. The rest of the stomach appeared normal. Biopsy was done from the antrum, the lesser curvat ure and the fundus to rule out H. pylori infection. Mucosa of the duodenum appeared perfectly parker l. Endoscope at this time was withdrawn. No additional abnormalities detected and the procedure wa s terminated. PLAN: Recommend proton pump inhibitor therapy. Dictated By: DEBBIE PEREZ MD NC/NTS Conf#: [id number] DID#: [id number] CC: IVAN LANDAVERDE MD; AZAR TA;*[facility]*
--- NOTE | 2017-05-06 15:43 | CONS ---
Date/Time of Note Date/Time of Note DATE: 05/06/17 TIME: 15:39 Assessment/Plan Assessment/Plan Chief Complaint/Hosp Course IMP: 1. Positive trop-minimal and now trended negative in setting of severe anemia 2.Chest pain-currently improved. Restiong images of vianca negative 3.H/O TAVR 4.? H/O Cabg 5.anemia-severe. s/p endocsopy this admit 6. H/O hip replacement 7. Bacteremia-E Coli/urosepsis 8. UTI-E Coli REcc: -Tele -would not continue plavix given severe anemia on presentation and consider baby asa at d/c only -imdur as tolerated for cp and consider BB if BP will allow -Follow hgb closely -NL EF by echo this admit with properly functioning aortic valve prothesis -Continue abx's and f/u cx data -d/c planing if remains stable Problems: Consultation Date/Type/Reason Admit Date/Time Apr 29, 2017 at 14:49 Initial Consult Date 04/30/2017 Type of Consultation: cardiology Reason for Consultation cad Referring Provider: IVAN LANDAVERDE MD Exam/Review of Systems Vital Signs Vitals Vital Signs Date Time Temp Pulse Resp B/P Pulse Ox O2 Delivery O2 Flow Rate FiO2 05/06/17 12:18 76 05/06/17 11:34 98.4 20 98/56 96 05/05/17 20:00 Nasal Cannula 2.0 Intake and Output 05/05/17 05/05/17 05/06/17 15:00 23:00 07:00 Intake Total 400 ml 300 ml Output Total 650 ml Balance -250 ml 300 ml Exam Review of Systems: CONSTITUTIONAL: No fevers, chills. PULMONARY: No sob CARDIOVASCULAR: No chest pain/palpitations GASTROINTESTINAL: No nausea/vomiting. GENITOURINARY: No hematuria/dysuria. MUSCULOSKELETAL: No myagias/arthalgias. PSYCHIATRIC: The patient denies depression. NEUROLOGIC: No weakness Constitutional: alert Psych: no complaints Head: normocephalic ENMT: mucosa pink and moist Neck: jvd (8 cm water), supple Respiratory: diminished breath sounds Cardiovascular: regular rate and rhythm Gastrointestinal: non-tender, soft Musculoskeletal: muscle tone (normal) Extremities: edema (none) Neurological: other (No focal deficits) Results Result Diagram: 05/06/1770605/06/17 0707 Results 24 hrs Laboratory Tests Test 05/06/17 07:07 White Blood Count 6.2 Red Blood Count 3.13 L Hemoglobin 10.2 L Hematocrit 30.9 L Mean Corpuscular Volume 98.7 Mean Corpuscular Hemoglobin 32.6 Mean Corpuscular Hemoglobin Concent 33.0 Red Cell Distribution Width 18.1 H Platelet Count 236 Mean Platelet Volume 9.7 Neutrophils % 64.5 Lymphocytes % 18.5 Monocytes % 10.6 Eosinophils % 4.0 Basophils % 0.6 Nucleated Red Blood Cells % 0.0 Neutrophils # 4.0 Lymphocytes # 1.2 Monocytes # 0.7 Eosinophils # 0.3 Basophils # 0.0 Nucleated Red Blood Cells # 0.0 Sodium Level 142 Potassium Level 4.0 Chloride Level 105 Carbon Dioxide Level 29 Anion Gap 12 Blood Urea Nitrogen 13 Creatinine 0.93 Glucose Level 91 Calcium Level 9.1 Phosphorus Level 3.4 Magnesium Level 2.0 Medications Medications Current Medications Ondansetron HCl (Zofran Inj) 4 mg Q6H PRN IV NAUSEA AND/OR VOMITING; Start 04/29/17 at 15:00 Acetaminophen (Tylenol Tab) 650 mg Q6H PRN PO PAIN LEVEL 1-3 OR FEVER Last administered on 05/03/17 21:01; Admin Dose 650 MG; Start 04/29/17 at 15:00 Acetaminophen (Tylenol Supp) 650 mg Q6H PRN [place] PAIN LEVEL 1-3 OR FEVER; Start 04/29/17 at 15:00 Docusate Sodium (Colace) 100 mg Q12H PRN PO CONSTIPATION; Start 04/29/17 at 15: 00 Magnesium Hydroxide (Milk Of Mag) 30 ml DAILY PRN PO CONSTIPATION; Start at 15:00 Bisacodyl (Dulcolax) 5 mg DAILY PRN PO CONSTIPATION; Start 04/29/17 at 15:00 Famotidine 20 mg 20 mg Q24H IV Last administered on 05/06/17 08:36; Admin Dose 20 MG; Start 04/30/17 at 09:00 Ceftriaxone Sodium (Rocephin) 50 ml @ 100 mls/hr Q24H IVPB Last administered on 05/05/17 16:31; Admin Dose 100 MLS/HR; Start 04/29/17 at 16:00; Stop 05/06 at 23:30 Isosorbide Mononitrate (Imdur) 30 mg DAILY PO Last administered on 05/06/17 08:37; Admin Dose 30 MG; Start 04/30/17 at 11:00 Clopidogrel Bisulfate (plaVIX) 75 mg DAILY PO Last administered on 05/02/17 08:36; Admin Dose 75 MG; Start 04/30/17 at 11:00; Status Future Hold Metoprolol Tartrate (Lopressor) 12.5 mg BID PO Last administered on 05/06/17 08:37; Admin Dose 12.5 MG; Start 05/02/17 at 21:00 Latanoprost (Xalatan) 1 drop QHS BOTH EYES Last administered on 05/05/17 21: 05; Admin Dose 1 DROP; Start 05/02/17 at 21:00 Levetiracetam (Keppra) 750 mg BID PO Last administered on 05/06/17 08:37; Admin Dose 750 MG; Start 05/05/17 at 21:00 Fluconazole (Diflucan) 100 mg DAILY PO ; Start 05/07/17 at 09:00 Ciprofloxacin (Cipro) 500 mg BID@06,18 NGT ; Start 05/06/17 at 18:00 MUAREEN HANDY May 06, 2017 15:43
[2017-05-06] MEDS ORDERED: FLUC100T39 PO (15:47)
[2017-05-06] MEDS: CEFTRIAXONE 1 GM/50 ML (PMX) 50 ML IVPB SCH (15:59)
[2017-05-06] MEDS ORDERED: CIPROFLOXACIN 500 MG TAB NGT SCH (18:00)
[2017-05-07] MEDS ORDERED: FLUCONAZOLE 100 MG TAB PO SCH (09:00)
== END 2017-05-06 18:28 | disposition home health service (06) | DRG 872 ==
LOC: E/R 11:08 → MS4 14:49
PROVIDERS: ADMIT Internal Medicine; ATTEND Internal Medicine
PROC: C21G1ZZ Planar Nuclear Medicine Imaging of Myocardium using Technetium 99m (Tc-99m) (ICD-10-PCS; 2017-05-03)
PROC: 30233N1 Transfusion of Nonautologous Red Blood Cells into Peripheral Vein, Percutaneous Approach (ICD-10-PCS; 2017-05-05)
PROC: 0DB68ZX Excision of Stomach, Via Natural or Artificial Opening Endoscopic, Diagnostic (ICD-10-PCS; principal; 2017-05-05 11:30)
DX: A41.51 Sepsis due to Escherichia coli [E. coli] (principal); N17.9 Acute kidney failure, unspecified; E87.8 Other disorders of electrolyte and fluid balance, not elsewhere classified; B37.81 Candidal esophagitis; E87.1 Hypo-osmolality and hyponatremia; I13.0 Hypertensive heart and chronic kidney disease with heart failure and stage 1 through stage 4 chronic kidney disease, or unspecified chronic kidney disease; I50.9 Heart failure, unspecified; N39.0 Urinary tract infection, site not specified; I25.810 Atherosclerosis of coronary artery bypass graft(s) without angina pectoris; D64.9 Anemia, unspecified; G40.909 Epilepsy, unspecified, not intractable, without status epilepticus; N18.9 Chronic kidney disease, unspecified; Z95.2 Presence of prosthetic heart valve; Z87.81 Personal history of (healed) traumatic fracture; Z95.1 Presence of aortocoronary bypass graft; Z87.19 Personal history of other diseases of the digestive system; I25.10 Atherosclerotic heart disease of native coronary artery without angina pectoris; E78.5 Hyperlipidemia, unspecified; K21.9 Gastro-esophageal reflux disease without esophagitis; Z96.641 Presence of right artificial hip joint; M85.80 Other specified disorders of bone density and structure, unspecified site; R79.89 Other specified abnormal findings of blood chemistry; R07.9 Chest pain, unspecified
CPT/HCPCS: 36415; 36430; 71010; 78451; 80048; 80053; 81001; 82550; 82553; 83605; 83735; 83880; 84100; 84443; 84484; 85025; 85610; 85651; 85730; 86850; 86900; 86901; 86920; 87040; 87045; 87075; 87086; 88305; 88312; 93005; 93306; 96365; 96375; 97110; 97116; 97163; 97530; A9505; J0696; J1953; J2270; J2405; J2543; J3370; J7030; J7040; P9016